=== PATIENT | male | born 1960 | race Caucasian/White ===

== ENCOUNTER 2016-05-17 15:17 | Observation (INO) | payer OTHER ==
[~2016-05-17] VITALS: Ht 182.9 cm; Wt 86.4 kg
[2016-05-17] VITALS (7 sets, daily range): BP systolic 121–148; BP diastolic 69–78; PULSE 61–87; RESP 18; TEMP 97.6–97.8; O2SAT 97–98
[~2016-05-17 15:17] MED LIST: Aspirin Chew PO; LIPI10TA PO; LISI-519 PO; METO25TA3 PO; NITR0.4S SL; PRAS10TA PO; SYMB160A INH
--- NOTE | 2016-05-17 15:36 | PD ---
HPI Chief Complaint: Chest Pain Time Seen by Provider: 15:23 Travel History International Travel<30 days: No Contact w/Intl Traveler<30days: No Traveled to known affect area: No History of Present Illness HPI 56-year-old male with history of CAD, cardiac stent placed on 01/08/16 in his right circumflex artery by Dr. Barajas for NSTEMI, here for evaluation of chest pain. The patient receives care in the [place] [facility]. He has not seen a full roll inspector since his cardiac catheter in December 2015. He states that he was in the [place] clinic a week ago, and his Effient was stopped, and he believes he was started on Plavix, but he is not sure. Chest pain started today about an hour ago while he was pushing a car. He reports the pain is substernal, pressure, mild, nonradiating, no modifying factors. He states it feels similar to his previous DC, but not as bad. No dyspnea. He smokes about a pack of cigarettes daily and states that he has cut down from 3 packs daily. PFSH Past Medical History Asthma: No Depression: Yes Cardiovascular Problems: No COPD: Yes Cerebrovascular Accident: Yes Endocrine: No Genitourinary: No Neurologic: No Reproductive: No Respiratory: Yes (copd) Past Surgical History Surgical History: No Previous Surgery Cardiac Surgery: Yes (stent(01/09/16)) Oral Surgery: Yes (teeth removed) Social History Alcohol Use: Yes (once a week) Tobacco Use: Yes (down to 3 cigs a day(was 3ppd)) Substance Use: Yes (cocaine) Allergies-Medications (Allergen,Severity, Reaction): Uncoded Allergies: NKDA (Allergy, Severe, 11/21/11) Reported Meds & Prescriptions Reported Meds & Active Scripts Active Nitrostat SL (Nitroglycerin) 0.4 Mg Subl 0.4 Mg SL Q5M PRN Metoprolol Tartrate 25 Mg Tab 12.5 Mg PO BID 30 Days Lisinopril 5 Mg Tab 5 Mg PO DAILY 30 Days Symbicort Inh (Budesonide/Formoterol Fumarate) 160-4.5 Mcg/Act Aero 2 Puff INH Q12HR 30 Days Lipitor (Atorvastatin Calcium) 10 Mg Tab 10 Mg PO HS 30 Days Reported Plavix (Clopidogrel Bisulfate) 75 Mg Tab 75 Mg PO DAILY Aspirin Childrens (Aspirin) 81 Mg Chew 81 Mg CHEW HS Review of Systems Except as stated in HPI: all other systems reviewed are Neg Physical Exam Narrative GENERAL: Well-developed, well-nourished, comfortable, no acute distress. SKIN: Warm and dry. HEAD: Atraumatic. Normocephalic. EYES: Pupils equal and round. No scleral icterus. No injection or drainage. ENT: No nasal bleeding or discharge. Mucous membranes pink and moist. Poor dentition. NECK: Trachea midline. No JVD. CARDIOVASCULAR: Regular rate and rhythm. Distal pulses brisk and equal bilaterally. RESPIRATORY: No accessory muscle use. Clear to auscultation. Breath sounds equal bilaterally. GASTROINTESTINAL: Abdomen soft, non-tender, nondistended. MUSCULOSKELETAL: No obvious deformities. No clubbing. No cyanosis. No edema. NEUROLOGICAL: Awake and alert. No obvious cranial nerve deficits. Motor grossly within normal limits. Normal speech. PSYCHIATRIC: Appropriate mood and affect; insight and judgment normal. Data Data Last Documented VS Vital Signs Date Time Temp Pulse Resp B/P Pulse Ox O2 Delivery O2 Flow Rate FiO2 05/17/16 15:33 98 Nasal Cannula 2 05/17/16 15:28 77 18 05/17/16 15:20 97.6 Orders Basic Metabolic Panel (Bmp) (05/17/16 15:31) Ckmb (Isoenzyme) Profile (05/17/16 15:31) Complete Blood Count With Diff (05/17/16 15:31) Magnesium (Mg) (05/17/16 15:31) Prothrombin Time / Inr (Pt) (05/17/16 15:31) Act Partial Throm Time (Ptt) (05/17/16 15:31) Troponin I (05/17/16 15:31) Chest, Single Ap (05/17/16 15:31) Ecg Monitoring (05/17/16 15:31) Iv Access Insert/Monitor (05/17/16 15:31) Oximetry (05/17/16 15:31) Oxygen Administration (05/17/16 15:31) Aspirin Chew (Aspirin Chew) (05/17/16 15:45) Sodium Chloride 0.9% Flush (Ns Flush) (05/17/16 15:45) Nitroglycerin Sl (Nitrostat Sl) (05/17/16 15:45) CKMB (05/17/16 15:50) CKMB% (05/17/16 15:50) Labs Laboratory Tests Test 05/17/16 15:50 White Blood Count 8.4 TH/MM3 Red Blood Count 5.66 MIL/MM3 Hemoglobin 17.4 GM/DL Hematocrit 50.6 % Mean Corpuscular Volume 89.5 FL Mean Corpuscular Hemoglobin 30.8 PG Mean Corpuscular Hemoglobin 34.4 % Concent Red Cell Distribution Width 13.4 % Platelet Count 241 TH/MM3 Mean Platelet Volume 8.6 FL Neutrophils (%) (Auto) 59.8 % Lymphocytes (%) (Auto) 28.4 % Monocytes (%) (Auto) 7.4 % Eosinophils (%) (Auto) 3.4 % Basophils (%) (Auto) 1.0 % Neutrophils # (Auto) 5.0 TH/MM3 Lymphocytes # (Auto) 2.4 TH/MM3 Monocytes # (Auto) 0.6 TH/MM3 Eosinophils # (Auto) 0.3 TH/MM3 Basophils # (Auto) 0.1 TH/MM3 CBC Comment DIFF FINAL Differential Comment Prothrombin Time 10.4 SEC Prothromb Time International 0.9 RATIO Ratio Activated Partial 28.6 SEC Thromboplast Time Sodium Level 137 MEQ/L Potassium Level 4.2 MEQ/L Chloride Level 104 MEQ/L Carbon Dioxide Level 22.2 MEQ/L Anion Gap 11 MEQ/L Blood Urea Nitrogen 19 MG/DL Creatinine 1.11 MG/DL Estimat Glomerular Filtration 68 ML/MIN Rate Random Glucose 87 MG/DL Calcium Level 9.5 MG/DL Magnesium Level 2.2 MG/DL Total Creatine Kinase 140 U/L Troponin I LESS THAN 0.02 NG/ML MDM Medical Decision Making Medical Screen Exam Complete: Yes Emergency Medical Condition: Yes Medical Record Reviewed: Yes Interpretation(s) EKG: Sinus, rate 76, normal axis, RBBB, no acute ischemic abnormality, unchanged from prior. Differential Diagnosis ACS, pneumothorax, pericarditis, PE, pneumonia, GERD, musculoskeletal pain Narrative Course Vital signs show heart rate 77, blood pressure 130/78, pulse ox 98% on room air , oral temp of 97.6F. CBC is remarkable for hemoglobin of 17.4, otherwise unremarkable. BMP is essentially unremarkable. Cardiac enzymes are negative. Chest x-ray: Hyperinflation characteristic of COPD. No superimposed acute infiltrate. Patient was made aware of all findings. He states his chest pain has resolved completely after one sublingual nitroglycerin. Given history of cardiac disease with recent stenting to the circumflex artery in December 2015, the patient will be admitted for overnight observation to the chest pain center. He is amenable to this plan. Diagnosis Primary Impression: Chest pain Qualified Code: R07.9 - Chest pain, unspecified type Admitting Information Admitting Physician Requests: Ron Garrido MD May 17, 2016 15:36
[2016-05-17] MEDS ORDERED: SODIUM CHLORIDE 0.9% FLUSH 5 ML FLUSH IVF PRN ×2 (15:45→17:00)
[2016-05-17] MEDS ORDERED: NITROGLYCERIN 0.4 MG SL 25 TABS/BTL SL ONE (15:45)
[2016-05-17] MEDS ORDERED: ASPIRIN 81 MG CHEW TAB PO ONE (15:45)
--- NOTE | 2016-05-17 15:51 | RADRPT ---
EXAM DATE/TIME: 05/17/2016 15:41 [facility] COMPARISON: CHEST SINGLE AP, January 29, 2016, 13:26. INDICATIONS : Chest pain MEDICAL HISTORY : Chronic obstructive pulmonary disease. SURGICAL HISTORY : Cardic stent ENCOUNTER: Initial ACUITY: 1 day PAIN SCORE: 8/10 LOCATION: chest FINDINGS: A single view of the chest demonstrates hyperinflation characteristic of some degree of COPD. No supe rimposed acute infiltrate or effusion. Heart size is normal. Osseous structures are intact. CONCLUSION: Hyperinflation characteristic of COPD. No superimposed acute infiltrate. Wilmer De Anda MD on May 17, 2016 at 15:48 Board Certified Radiologist. This report was verified electronically.
[2016-05-17 16:11] LABS: BASOPHIL # 0.1 TH/MM3 (0-0.2); EOSINOPHIL # 0.3 TH/MM3 (0-0.4); EOSINOPHIL % 3.4 % (0.0-4.0); HEMATOCRIT 50.6 % (39.0-51.0); HEMO FLAGS DIFF FINAL; LYMPH % 28.4 % (9.0-44.0); LYMPHOCYTE # 2.4 TH/MM3 (1.0-4.8); MEAN CELL VOLUME 89.5 FL (80.0-100.0); MEAN CORPUSCULAR HEMOGLOBIN 30.8 PG (27.0-34.0); MEAN CORPUSCULAR HGB CONC 34.4 % (32.0-36.0); MONO % 7.4 % (0.0-8.0); NEUT % 59.8 % (16.0-70.0); PLATELET COUNT 241 TH/MM3 (150-450); RED BLOOD COUNT 5.66 MIL/MM3 (4.50-5.90); RED CELL DISTRIBUTION WIDTH 13.4 % (11.6-17.2); WHITE BLOOD COUNT 8.4 TH/MM3 (4.0-11.0)
[2016-05-17] MEDS ORDERED: ASPI81CH5 CHEW (16:24)
[2016-05-17] MEDS ORDERED: PLAV75TA29 PO (16:24)
[2016-05-17 16:27] LABS: APTT (PATIENT) 28.6 SEC (24.3-30.1); INTERNATIONAL NORMALIZED RATIO 0.9 RATIO; PROTHROMBIN TIME - PATIENT 10.4 SEC (9.8-11.6)
[2016-05-17 16:28] LABS: ANION GAP 11 MEQ/L (5-15); BICARBONATE 22.2 MEQ/L (21.0-32.0); BLOOD UREA NITROGEN 19 MG/DL (7-18); CHLORIDE 104 MEQ/L (98-107); GLOMERULAR FILTRATION RATE 68 ML/MIN (>89); MAGNESIUM 2.2 MG/DL (1.5-2.5); POTASSIUM 4.2 MEQ/L (3.5-5.1); SODIUM (NA) 137 MEQ/L (136-145)
[2016-05-17 16:31] LABS: CREATINE KINASE 140 U/L (39-308)
[2016-05-17 16:44] LABS: CKMB 1.7 NG/ML (0.5-3.6)
[2016-05-17] MEDS ORDERED: NITROGLYCERIN 0.4 MG SL 25 TABS/BTL SL PRN (17:00)
[2016-05-17] MEDS ORDERED: ONDANSETRON HCL 4 MG/2 ML VIAL IV PRN (17:00)
[2016-05-17] MEDS ORDERED: ACETAMINOPHEN 500 MG CPLT PO PRN (17:00)
--- NOTE | 2016-05-17 18:36 | HHI.HP ---
HPI Primary Care Physician [facility] Chief Complaint Chest pain History of Present Illness 56-year-old male with known CAD with one cardiac stent placed to his left circumflex December 2015. He was a non-STEMI at that time. Onset this afternoon, he is unsure of exact time, when he developed substernal chest pressure as though "someone was sitting on my chest." Severity of chest pressure 5/10 currently 1/10. Radiation to his left anterior chest. Duration has been constant although has improved in intensity. Associated symptoms included diaphoresis and feeling weak and dizzy. No nausea. Precipitating factors he believes pushing a car. 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 Today while at work he had chest pressure through most of the day that became severe after pushing a third car. No known relieving factors. Chronic intermittent neck/upper mid back pain that radiates to his left arm for the past 2 years. Last week he went to the [place] clinic for refills of medications. Endorses he was compliant with medications for 30 days after cardiac stent placement. Due to lack of insurance and waiting for Hi approval of medications, he has been out of medications up until one week ago. Last week all medications refilled with the exception of Effient which was changed to Plavix. Review of Systems General: Fatigue since cardiac stent placement. Intermittent fevers and chills 2 weeks. No change in appetite. HEENT: No KRAMER, no vision changes, no dysphasia. Nasal congestion and drainage 2 weeks, does not feel he has seasonal allergies. CV: As stated above. No palpitations or intermittent leg pain RESP: No SOB or hemoptysis. States "I have a daily smoker's cough." This is not changed and is stable, has COPD. GI: No nausea, vomiting, bowel changes, diarrhea, constipation, pain, distention , melena, blood in the stool. No change in appetite. Last year lost 70 pounds after his divorce, currently weight is unchanged and stable. : No dysuria, urgency, frequency, hematuria EXT: No lower leg edema, no paraesthesias MS: Chronic neck and back discomfort, stable. No change in ROM. NEURO: No change in memory, dizziness, difficulty with balance, LOC, motor/ sensory deficits PSYCH: No anxiety or depression. Situational stress regarding his need to work however due to the physical nature of job is quite stressed. SKIN: No rashes, no concerning lesions Past Family Social History Allergies: Uncoded Allergies: NKDA (Allergy, Severe, 11/21/11) Past Medical History COPD, CADnon-STEMI, one cardiac stent to left circumflex Past Surgical History None Reported Medications Reported Meds & Active Scripts Active Nitrostat SL (Nitroglycerin) 0.4 Mg Subl 0.4 Mg SL Q5M PRN Metoprolol Tartrate 25 Mg Tab 12.5 Mg PO BID 30 Days Lisinopril 5 Mg Tab 5 Mg PO DAILY 30 Days Symbicort Inh (Budesonide/Formoterol Fumarate) 160-4.5 Mcg/Act Aero 2 Puff INH Q12HR 30 Days Lipitor (Atorvastatin Calcium) 10 Mg Tab 10 Mg PO HS 30 Days Plavix (Clopidogrel Bisulfate) 75 Mg Tab 75 Mg PO DAILY Aspirin Childrens (Aspirin) 81 Mg Chew 81 Mg CHEW HS Active Ordered Medications Current Medications Medications (Trade) Dose Ordered Sig/Saturnino Route Start Time Stop Time Status Last Admin (Tylenol) 500 mg Q4H PRN PO 05/17/16 17:00 (Zofran Inj) 4 mg Q6H PRN IV 05/17/16 17:00 (Nitrostat Sl) 0.4 mg Q5M PRN SL 05/17/16 17:00 (Aspirin) 325 mg DAILY PO 05/18/16 09:00 Family History Non-contributory for early onset cardiovascular disease Social History , ex- at bedside. Works at local [employer]. Lifelong smoker. Prior to [place] in December smoked 3 packs/daily. Currently smoking 1 pack daily. Alcohol occasionally states maybe once a week. Has not smoked cocaine in "months." Past cardiac testing 01/08/16left circumflex PTCA with drug-eluting stent. No recent stress testing. Not followed with storage engineer since catheterization due to insurance. Physical Exam Vital Signs Vital Signs Date Time Temp Pulse Resp B/P Pulse Ox O2 Delivery O2 Flow Rate FiO2 05/17/16 15:33 98 Nasal Cannula 2 05/17/16 15:33 98 Nasal Cannula 2 05/17/16 15:28 77 18 98 Room Air 05/17/16 15:20 97.6 75 18 Physical Exam GENERAL: Alert WN, WD, NAD, pleasant, male who appears older than stated age HEAD: NC, AT EYES: Sclera clear, conjunctiva without injection, pupils equal and round ENT: Mucous membranes pink and moist CV: RRR, without murmur, rub, gallop, no JVD, S1-S2 no S3-S4. Left anterior and substernal chest tender upon palpation. RESP: Inspiratory and expiratory wheeze with a prolonged expiratory phase. No crackles or rhonchi. Symmetrical chest rise, nonlabored, able to speak in full sentences ABD: Soft, NT, ND, no masses, positive bowel tones EXT: Pulses +14, no dependent edema MS: Normal tone 4 extremities, nontender, no obvious deformities, full range of motion NEURO: CN II through CN XII grossly intact, motor strength 5/5, gait WNL PSYCH: A+O 3, pleasant affect, appropriate speech, appropriate mood and affect , insight and judgment SKIN: Normal turgor, normal texture, no lesions, no rashes Laboratory Laboratory Tests Test 05/17/16 15:50 White Blood Count 8.4 Red Blood Count 5.66 Hemoglobin 17.4 Hematocrit 50.6 Mean Corpuscular Volume 89.5 Mean Corpuscular Hemoglobin 30.8 Mean Corpuscular Hemoglobin 34.4 Concent Red Cell Distribution Width 13.4 Platelet Count 241 Mean Platelet Volume 8.6 Neutrophils (%) (Auto) 59.8 Lymphocytes (%) (Auto) 28.4 Monocytes (%) (Auto) 7.4 Eosinophils (%) (Auto) 3.4 Basophils (%) (Auto) 1.0 Neutrophils # (Auto) 5.0 Lymphocytes # (Auto) 2.4 Monocytes # (Auto) 0.6 Eosinophils # (Auto) 0.3 Basophils # (Auto) 0.1 CBC Comment DIFF FINAL Differential Comment Prothrombin Time 10.4 Prothromb Time International 0.9 Ratio Activated Partial 28.6 Thromboplast Time Sodium Level 137 Potassium Level 4.2 Chloride Level 104 Carbon Dioxide Level 22.2 Anion Gap 11 Blood Urea Nitrogen 19 Creatinine 1.11 Estimat Glomerular Filtration 68 Rate Random Glucose 87 Calcium Level 9.5 Magnesium Level 2.2 Total Creatine Kinase 140 Creatine Kinase MB 1.7 Troponin I LESS THAN 0.02 Result Diagram: 05/17/16 1550 05/17/16 1550 Imaging Last Impressions Chest X-Ray 05/17/16 1531 Signed Impressions: Service Date/Time: Tuesday, May 17, 2016 15:41 - CONCLUSION: Hyperinflation characteristic of COPD. No superimposed acute infiltrate. Wilmer De Anda MD Course EKG Normal sinus rhythm, right bundle branch block, no ST or T-segment changes Assessment and Plan Assessment and Plan #1 Chest painadmitted to chest pain center. Will be ruled out with 3 sets of EKGs and cardiac enzymes. Monitor overnight. Will be seen and evaluated by Dr. Clemons in the a.m. Discussed this with patient and he is agreeable to plan of care. Further disposition to follow. Cardiac home medications will be reordered. #2 Tobacco usediscussed and counseled patient in length on importance of tobacco sensation. Encouraged patient to quit smoking. #3 COPDreorder Symbicort, encouraged tobacco sensation Cassandra Hernandez May 17, 2016 18:36
[2016-05-17] MEDS ORDERED: PILL SPLITTER OTHER PRN (18:45)
[2016-05-17] MEDS ORDERED: RESP: ALBUTEROL 2.5 MG/3 ML NEB (PRN) NEB (18:45)
[2016-05-17] MEDS ORDERED: ATORVASTATIN 10 MG TAB PO SCH (21:00)
[2016-05-17 21:17] LABS: CREATINE KINASE 108 U/L (39-308)
[2016-05-17 21:29] LABS: CKMB 1.6 NG/ML (0.5-3.6)
[2016-05-17] MEDS: SODIUM CHLORIDE 0.9% FLUSH 5 ML FLUSH IVF SCH (21:46)
[2016-05-17] MEDS: BUDESONIDE-FORMOTEROL 160/4.5 MCG INHALER INH SCH (21:46)
[2016-05-17] MEDS: METOPROLOL TARTRATE 25 MG TAB PO SCH (21:48)
[2016-05-17 22:45] LABS: CREATINE KINASE 107 U/L (39-308)
[2016-05-17 22:58] LABS: CKMB 1.2 NG/ML (0.5-3.6)
[2016-05-18] VITALS (7 sets, daily range): BP systolic 107–112; BP diastolic 63–67; PULSE 58–81; RESP 14–16; TEMP 95.8–98; O2SAT 96–97
[2016-05-18] MEDS: SODIUM CHLORIDE 0.9% FLUSH 5 ML FLUSH IVF SCH (08:02)
[2016-05-18] MEDS ORDERED: CLOPIDOGREL 75 MG TAB PO SCH (09:00)
[2016-05-18] MEDS ORDERED: ASPIRIN 325 MG TAB PO SCH (09:00)
[2016-05-18] MEDS ORDERED: LISINOPRIL 5 MG TAB PO SCH (09:00)
[2016-05-18] MEDS ORDERED: REGADENOSON INJ 0.4 MG/5 ML SYR ONE (10:56)
[2016-05-18] MEDS: BUDESONIDE-FORMOTEROL 160/4.5 MCG INHALER INH SCH (11:54)
[2016-05-18] MEDS: METOPROLOL TARTRATE 25 MG TAB PO SCH (11:56)
--- NOTE | 2016-05-18 12:19 | RADRPT ---
EXAM DATE/TIME: 05/18/2016 10:11 [facility] COMPARISON: No previous studies available for comparison. INDICATIONS : Substernal chest pain for 1 day. Angina. DOSE: 26.3 mCi Tc99m Myoview at stress. 8.6 mCi Tc99m Myoview at rest. 0.4 mg Lexiscan STRESS SYMPTOMS: Shortness of breath. EJECTION FRACTION: 44% MEDICAL HISTORY : Myocardial infarction. Chronic obstructive pulmonary disease. Hypercholesterolemia. Hypertension. Smo ker. Stroke SURGICAL HISTORY : Coronary artery stent. ENCOUNTER: Initial ACUITY: 1 day PAIN SCALE: 5/10 LOCATION: Substernal chest TECHNIQUE: The patient underwent pharmacologic stress with infusion of prescribed dose. Continuous ECG tracing was monitored during stress. Gated SPECT imaging was performed after stress and conventional SPECT i maging was performed at rest. The examination was performed on a SPECT/CT scanner, both attenuation and non-corrected datasets were reviewed. FINDINGS: DISTRIBUTION: The maximum perfused segment at stress is in the lateral wall. There is some increased activity in th e inferior wall on the stress images due to bowel contamination PERFUSION STUDY: The pattern of perfusion at stress shows approximately 20% redistribution in the region of the apex. GATED STUDY: Diffuse hypokinesis with a reduced ejection fraction of 44%. CONCLUSION: 1. Scintigraphic findings concerning for apical ischemia. 2. Diffuse hypokinesis with a reduced ejection fraction of 44%. RISK CATEGORY: Intermediate (1-3% Annual Mortality Rate) Wilmer De Anda MD on May 18, 2016 at 12:11 Board Certified Radiologist. This report was verified electronically.
[2016-05-18] MEDS ORDERED: SODIUM CHLOR 0.9% 1000 ML INJ 1,000 ML IV SCH (13:58)
--- NOTE | 2016-05-18 15:11 | HHI.DCPOC ---
Discharge Care Plan Diagnosis: (1) Chest pain (2) CAD (coronary artery disease) (3) H/O heart artery stent (4) Hypertension (5) Hyperlipidemia (6) Tobacco abuse (7) COPD (chronic obstructive pulmonary disease) Goals to Promote Your Health * To prevent worsening of your condition and complications * To maintain your health at the optimal level Directions to Meet Your Goals Take your medications as prescribed Follow your dietary instruction Follow activity as directed Keep your appointments as scheduled Take your immunizations and boosters as scheduled If your symptoms worsen call your PCP, if no PCP go to Urgent Care Center or Emergency Room Smoking is Dangerous to Your Health. Avoid second hand smoke Call the 24-hour hour crisis hotline for domestic abuse at Mick [place] May 18, 2016 15:11
--- NOTE | 2016-05-18 16:51 | EKG ---
Date Performed: 05/17/2016 Time Performed: 18:38:29 PTAGE: 56 years EKG: SINUS BRADYCARDIA WITH SINUS ARRHYTHMIA RIGHT BUNDLE BRANCH BLOCK ABNORMAL ECG Since PREVIOUS TRACING , no significant change noted PREVIOUS TRACIN05/17/2016 15.25 DOCTOR: Liset Clemons Interpretating Date/Time 05/18/2016 16:51:38
--- NOTE | 2016-05-18 16:51 | EKG ---
Date Performed: 05/17/2016 Time Performed: 15:25:28 PTAGE: 56 years EKG: Sinus rhythm RIGHT BUNDLE BRANCH BLOCK ABNORMAL ECG Since PREVIOUS TRACING , no significant change noted DOCTOR: Liset Clemons Interpretating Date/Time 05/18/2016 16:50:08
--- NOTE | 2016-05-18 16:54 | EKG ---
Date Performed: 05/17/2016 Time Performed: 22:05:09 PTAGE: 56 years EKG: Sinus rhythm RIGHT BUNDLE BRANCH BLOCK ABNORMAL ECG Since PREVIOUS TRACING , no significant change noted PREVIOUS TRACIN05/17/2016 18.38 DOCTOR: Liset Clemons Interpretating Date/Time 05/18/2016 16:52:54
--- NOTE | 2016-05-18 16:55 | TR ---
Date Performed: 05/18/2016 Time Performed: 10:45:51 DOCTOR: Liset Clemons DRUG LIST: CLINICAL HISTORY: REASON FOR TEST: Angina REASON FOR ENDING: OBSERVATION: CONCLUSION: Lexiscan stress test was performed under standard four minute protocol. Radionuclid e was injected one minute prior to ending the test. No electrocardiographic abormalities were present to suggest ischemia. Nuclear imaging and interpretation are pending. COMMENTS:
== END 2016-05-18 17:08 | disposition home or self-care (01) ==
LOC: NEPC 15:17 → NEDA 16:45 → NEPHCDU 20:52
PROVIDERS: ADMIT Internal Medicine Cardiovascular Disease; ATTEND Internal Medicine Cardiovascular Disease
DX: R07.9 Chest pain, unspecified (principal); Z95.5 Presence of coronary angioplasty implant and graft; I25.10 Atherosclerotic heart disease of native coronary artery without angina pectoris; I25.2 Old myocardial infarction; F17.210 Nicotine dependence, cigarettes, uncomplicated; J44.9 Chronic obstructive pulmonary disease, unspecified; Z86.73 Personal history of transient ischemic attack (TIA), and cerebral infarction without residual deficits; Z79.01 Long term (current) use of anticoagulants; R61 Generalized hyperhidrosis; M54.9 Dorsalgia, unspecified; I45.10 Unspecified right bundle-branch block
CPT/HCPCS: 71010; 78452; 80048; 82550; 82552; 83735; 84484; 85025; 85610; 85730; 93005; 93017; 94664; 99285; A9502; G0378; J2785; J7030; J7613

== ENCOUNTER 2016-07-23 08:22 | Observation (INO) | payer OTHER ==
[~2016-07-23] VITALS: Ht 180.3 cm; Wt 91.0 kg
[~2016-07-23 08:22] MED LIST changes: +ASPI81CH5 CHEW; -Aspirin Chew PO; +PLAV75TA29 PO; -PRAS10TA PO
[2016-07-23 08:24] VITALS: BP 135/89; PULSE 76; RESP 24; TEMP 97.5; O2SAT 96
[2016-07-23 08:25] VITALS: O2SAT 93
[2016-07-23] MEDS ORDERED: SODIUM CHLORIDE 0.9% FLUSH 10 ML FLUSH IVF PRN (08:30)
[2016-07-23 08:33] VITALS: BP 142/82; PULSE 78; RESP 15; O2SAT 93
[2016-07-23 08:35] VITALS: BP_SYST 142; BP_SYST 149; BP_DIAS 82; BP_DIAS 90
--- NOTE | 2016-07-23 08:44 | RADRPT ---
EXAM DATE/TIME: 07/23/2016 08:30 [facility] COMPARISON: CHEST SINGLE AP, May 17, 2016, 15:41. INDICATIONS : Chest pain today MEDICAL HISTORY : Myocardial infarction. Chronic obstructive pulmonary disease. SURGICAL HISTORY : None. ENCOUNTER: Initial ACUITY: 1 day PAIN SCORE: 3/10 LOCATION: Bilateral chest FINDINGS: A single view of the chest demonstrates the lungs to be symmetrically aerated without evidence of mas s, infiltrate or effusion. The cardiomediastinal contours are unremarkable. Osseous structures are intact. CONCLUSION: No acute disease. Axel Villalobos MD on July 23, 2016 at 8:41 Board Certified Radiologist. This report was verified electronically.
--- NOTE | 2016-07-23 08:48 | PD ---
HPI Chief Complaint: Chest Pain Time Seen by Provider: 08:27 Travel History International Travel<30 days: No Contact w/Intl Traveler<30days: No Traveled to known affect area: No History of Present Illness HPI This is a 56-year-old gentleman with history of coronary artery disease, COPD, presents today with complaints of chest pain that woke from sleep this morning. Patient reports it as left sided radiating from the top of his chest at the bottom of his chest. He reports it as a 5 out of 10 on the pain scale. He has chronic shortness of breath but denies any worsening shortness of breath. He denies any nausea or diaphoresis. The patient reports she's not been on his medications for several weeks because he has been working nonstop as a fuel truck driver. There are no other complaints time of my examination. PFSH Past Medical History Asthma: No Depression: Yes Heart Rhythm Problems: No Cardiac Catheterization: Yes Cardiovascular Problems: Yes High Cholesterol: Yes Congestive Heart Failure: No COPD: Yes Cerebrovascular Accident: Yes Diabetes: No Endocrine: No Genitourinary: No Neurologic: No Reproductive: No Respiratory: Yes (copd) Past Surgical History Cardiac Surgery: Yes (stent(01/09/16)) Coronary Artery Bypass Graft: No Oral Surgery: Yes (teeth removed) Social History Alcohol Use: Yes (once a week) Tobacco Use: Yes (down to 3 cigs a day(was 3ppd)) Substance Use: Yes (cocaine) Allergies-Medications (Allergen,Severity, Reaction): Coded Allergies: No Known Allergies (Unverified , 07/23/16) Reported Meds & Prescriptions Reported Meds & Active Scripts Active Nitrostat SL (Nitroglycerin) 0.4 Mg Subl 0.4 Mg SL Q5M PRN Metoprolol Tartrate 25 Mg Tab 12.5 Mg PO BID 30 Days Lisinopril 5 Mg Tab 5 Mg PO DAILY 30 Days Symbicort Inh (Budesonide/Formoterol Fumarate) 160-4.5 Mcg/Act Aero 2 Puff INH Q12HR 30 Days Lipitor (Atorvastatin Calcium) 10 Mg Tab 10 Mg PO HS 30 Days Reported Plavix (Clopidogrel Bisulfate) 75 Mg Tab 75 Mg PO DAILY Aspirin Childrens (Aspirin) 81 Mg Chew 81 Mg CHEW HS Review of Systems Except as stated in HPI: all other systems reviewed are Neg General / Constitutional: No: Fever, Chills HENT: No: Headaches, Lightheadedness Cardiovascular: Positive: Chest Pain or Discomfort, No: Palpitations, Irregular Rhythm Respiratory: Positive: Shortness of Breath (chronic secondary to COPD), No: Cough, Pleuritic Pain Gastrointestinal: Positive: Nausea, Vomiting, Abdominal Pain Musculoskeletal: No: Weakness, Pain Neurologic: No: Weakness, Dizziness, Headache Psychiatric: No: Anxiety, Depression Physical Exam Narrative GENERAL: Well-developed well-nourished male in no acute distress. The patient has a strong tobacco odor. SKIN: Focused skin assessment warm/dry. HEAD: Atraumatic. Normocephalic. EYES:No scleral icterus. No injection or drainage. ENT: No nasal bleeding or discharge. Mucous membranes pink and moist. NECK: Trachea midline. No JVD. Supple. CARDIOVASCULAR: Regular rate and rhythm. No murmur appreciated. RESPIRATORY: No accessory muscle use. Clear to auscultation. Breath sounds equal bilaterally. No wheezes. GASTROINTESTINAL: Abdomen soft, non-tender, nondistended. Hepatic and splenic margins not palpable. MUSCULOSKELETAL: No obvious deformities. No clubbing. No cyanosis. No edema. NEUROLOGICAL: Awake and alert. No obvious cranial nerve deficits. Motor grossly within normal limits. Normal speech. PSYCHIATRIC: Appropriate mood and affect; insight and judgment normal. Data Data Last Documented VS Vital Signs Date Time Temp Pulse Resp B/P Pulse Ox O2 Delivery O2 Flow Rate FiO2 07/23/16 08:52 78 15 142/82 97 07/23/16 08:35 Room Air 07/23/16 08:25 2.0 07/23/16 08:24 97.5 Orders Electrocardiogram (07/23/16 ) Electrocardiogram (07/23/16 08:27) Basic Metabolic Panel (Bmp) (07/23/16 08:27) Ckmb (Isoenzyme) Profile (07/23/16 08:27) Complete Blood Count With Diff (07/23/16 08:27) Magnesium (Mg) (07/23/16 08:27) Prothrombin Time / Inr (Pt) (07/23/16 08:27) Act Partial Throm Time (Ptt) (07/23/16 08:27) Troponin I (07/23/16 08:27) Chest, Single Ap (07/23/16 08:27) Ecg Monitoring (07/23/16 08:27) Bilateral Bp Monitoring (07/23/16 08:27) Iv Access Insert/Monitor (07/23/16 08:27) Oximetry (07/23/16 08:27) Oxygen Administration (07/23/16 08:27) Sodium Chloride 0.9% Flush (Ns Flush) (07/23/16 08:30) CKMB (07/23/16 08:30) CKMB% (07/23/16 08:30) Admit Order (Ed Use Only) (07/23/16 09:35) Labs Laboratory Tests Test 07/23/16 08:30 White Blood Count 8.0 TH/MM3 Red Blood Count 5.34 MIL/MM3 Hemoglobin 16.6 GM/DL Hematocrit 47.1 % Mean Corpuscular Volume 88.2 FL Mean Corpuscular Hemoglobin 31.1 PG Mean Corpuscular Hemoglobin 35.3 % Concent Red Cell Distribution Width 13.5 % Platelet Count 236 TH/MM3 Mean Platelet Volume 8.1 FL Neutrophils (%) (Auto) 63.3 % Lymphocytes (%) (Auto) 25.1 % Monocytes (%) (Auto) 7.9 % Eosinophils (%) (Auto) 2.8 % Basophils (%) (Auto) 0.9 % Neutrophils # (Auto) 5.0 TH/MM3 Lymphocytes # (Auto) 2.0 TH/MM3 Monocytes # (Auto) 0.6 TH/MM3 Eosinophils # (Auto) 0.2 TH/MM3 Basophils # (Auto) 0.1 TH/MM3 CBC Comment DIFF FINAL Differential Comment Prothrombin Time 10.9 SEC Prothromb Time International 1.0 RATIO Ratio Activated Partial 29.2 SEC Thromboplast Time Sodium Level 137 MEQ/L Potassium Level 3.7 MEQ/L Chloride Level 101 MEQ/L Carbon Dioxide Level 28.8 MEQ/L Anion Gap 7 MEQ/L Blood Urea Nitrogen 14 MG/DL Creatinine 1.06 MG/DL Estimat Glomerular Filtration 72 ML/MIN Rate Random Glucose 92 MG/DL Calcium Level 9.0 MG/DL Magnesium Level 2.4 MG/DL Total Creatine Kinase 196 U/L Troponin I LESS THAN 0.02 NG/ML MDM Medical Decision Making Medical Screen Exam Complete: Yes Emergency Medical Condition: Yes Differential Diagnosis ACS versus musculoskeletal pain versus COPD exacerbation versus pneumonia Narrative Course 56-year-old male who presents today with complaints of left sided chest pain. The patient had a stent placed in December. He's been off his medications for 3 weeks. One of the medications was Plavix. He's been given one aspirin. Cardiac enzymes are normal. Given his chest pain and medication noncompliance, I feel he would be best suited in the chest pain center for rule out protocol. I discussed this with the patient and he is amenable. Diagnosis Primary Impression: Chest pain Additional Impressions: Noncompliance with medication treatment due to underuse of medication Tobacco abuse Hypertension CAD (coronary artery disease) Camron Ronquillo MD July 23, 2016 08:48
[2016-07-23 08:52] VITALS: BP 142/82; PULSE 78; RESP 15; O2SAT 97
[2016-07-23 08:59] LABS: BASOPHIL # 0.1 TH/MM3 (0-0.2); BASOPHIL % 0.9 % (0.0-2.0); EOSINOPHIL # 0.2 TH/MM3 (0-0.4); EOSINOPHIL % 2.8 % (0.0-4.0); HEMATOCRIT 47.1 % (39.0-51.0); HEMO FLAGS DIFF FINAL; LYMPH % 25.1 % (9.0-44.0); MEAN CELL VOLUME 88.2 FL (80.0-100.0); MEAN CORPUSCULAR HEMOGLOBIN 31.1 PG (27.0-34.0); MEAN CORPUSCULAR HGB CONC 35.3 % (32.0-36.0); MONO % 7.9 % (0.0-8.0); NEUT % 63.3 % (16.0-70.0); PLATELET COUNT 236 TH/MM3 (150-450); RED BLOOD COUNT 5.34 MIL/MM3 (4.50-5.90); RED CELL DISTRIBUTION WIDTH 13.5 % (11.6-17.2)
[2016-07-23 09:14] LABS: APTT (PATIENT) 29.2 SEC (24.3-30.1); PROTHROMBIN TIME - PATIENT 10.9 SEC (9.8-11.6)
[2016-07-23 09:28] LABS: ANION GAP 7 MEQ/L (5-15); BICARBONATE 28.8 MEQ/L (21.0-32.0); BLOOD UREA NITROGEN 14 MG/DL (7-18); CHLORIDE 101 MEQ/L (98-107); GLOMERULAR FILTRATION RATE 72 ML/MIN (>89); MAGNESIUM 2.4 MG/DL (1.5-2.5); POTASSIUM 3.7 MEQ/L (3.5-5.1); SODIUM (NA) 137 MEQ/L (136-145)
[2016-07-23 09:33] LABS: CREATINE KINASE 196 U/L (39-308)
[2016-07-23 09:45] LABS: CKMB 1.9 NG/ML (0.5-3.6)
[2016-07-23] MEDS ORDERED: ACETAMINOPHEN 500 MG CPLT PO PRN (10:15)
[2016-07-23] MEDS ORDERED: NITROGLYCERIN 0.4 MG SL 25 TABS/BTL SL PRN (10:15)
[2016-07-23] MEDS ORDERED: ONDANSETRON HCL 4 MG/2 ML VIAL IV PRN (10:15)
--- NOTE | 2016-07-23 11:00 | HHI.HP ---
HPI Primary Care Physician [facility] Chief Complaint Chest pain History of Present Illness 56-year-old male significant history of coronary artery disease including x1 stent and current 3 pack daily smoker presents to emergency room for further evaluation of chest pain. Onset this a.m. upon awakening. Location left anterior chest radiating to left inframammary and axillary area Pain has been constant since this a.m. Initially pain rated 7/10, currently pain 2/10. Described as a dull ache. States it "feels like a pulled a muscle." No associated symptoms of nausea, vomiting, or diaphoresis. Hurts to take a deep breath and when moving left arm in certain positions makes pain worse. No recent injury to affected area. No known precipitating or relieving factors. Endorses he has not taken his cardiac or any of his medications 3 weeks as he has been "too busy working." Review of Systems General: No fatigue,weakness, fever, chills, recent illness, or recent travel. His been in his general state of health. Endorses he has been working long hours and therefore has not taken any of his medications including his cardiac medication 3 weeks. HEENT: No KRAMER, no vision changes CV: Continues to have chest pain as stated above. No intermittent leg pain or dizziness. RESP: History of COPD. Reports chronic shortness of breath, unchanged from his normal shortness of breath. Chronic "smoker cough" productive at times. No recent URI or wheeze. Continues to smoke 3 packs cigarettes daily. GI: No nausea, vomiting, bowel changes, diarrhea, constipation, pain, or blood in the stool. No change in appetite, no unintentional weight gain or weight loss. : No dysuria, urgency, frequency EXT: No lower leg edema, chronic bilateral lower leg tingling MS: No discomfort or change in ROM NEURO: No change in memory, dizziness, difficulty with balance, LOC, motor/ sensory deficits PSYCH: No anxiety, depression, or situational stress SKIN: No rashes, no concerning lesions Past Family Social History Allergies: Coded Allergies: No Known Allergies (Unverified , 07/23/16) Past Medical History COPD, CAD, NSTEMI, one cardiac stent to left circumflex Past Surgical History None Reported Medications Active Nitrostat SL (Nitroglycerin) 0.4 Mg Subl 0.4 Mg SL Q5M PRN Metoprolol Tartrate 25 Mg Tab 12.5 Mg PO BID 30 Days Lisinopril 5 Mg Tab 5 Mg PO DAILY 30 Days Symbicort Inh (Budesonide/Formoterol Fumarate) 160-4.5 Mcg/Act Aero 2 Puff INH Q12HR 30 Days Lipitor (Atorvastatin Calcium) 10 Mg Tab 10 Mg PO HS 30 Days Plavix (Clopidogrel Bisulfate) 75 Mg Tab 75 Mg PO DAILY Aspirin Childrens (Aspirin) 81 Mg Chew 81 Mg CHEW HS Active Ordered Medications Current Medications Medications (Trade) Dose Ordered Sig/Saturn[place] Route Start Time Stop Time Status Last Admin (Tylenol) 500 mg Q4H PRN PO 07/23/16 10:15 (Zofran Inj) 4 mg Q6H PRN IV 07/23/16 10:15 (Nitrostat Sl) 0.4 mg Q5M PRN SL 07/23/16 10:15 (Aspirin) 325 mg DAILY PO 07/24/16 09:00 Family History Non-contributory for early onset cardiovascular disease. Social History Known coronary artery disease, hypertension, and hyperlipidemia. No known diabetes. Life long smoker. Currently smoking 3 packs daily. Occasional alcohol use. Denies any illegal drug use. Works at a [employer] 18 hours daily, 6 days a week. Past cardiac testing 05/18/16-Erika scan1. Scintigraphic findings concerning apical ischemia.2. Diffuse hypokinesis, EF 44%. 01/08/16 cardiac catheterization (Dr. Barajas)- Conclusions 1. Non-STEMI. Culprit vessel to left circumflex artery. 2. Successful PCI with drug-eluting stent to left circumflex artery. 3 diastolic dysfunction. Since last visit he has established with the [facility] and has an appointment Tuesday07/27/16 with a [place] wheelchair driver in [place]. Physical Exam Vital Signs Vital Signs Date Time Temp Pulse Resp B/P Pulse Ox O2 Delivery O2 Flow Rate FiO2 07/23/16 08:52 78 15 142/82 97 07/23/16 08:35 142/82 149/90 07/23/16 08:35 93 Room Air 07/23/16 08:33 78 15 142/82 93 Room Air 07/23/16 08:25 93 Room Air 07/23/16 08:25 Nasal Cannula 2.0 07/23/16 08:24 97.5 76 24 135/89 96 Room Air Physical Exam GENERAL: Alert WN, WD, NAD, pleasant, male who appears older than stated age. HEAD: NC, AT NECK: Supple, trachea midline CV: RRR, without murmur, rub, gallop, no JVD, S1-S2 no S3-S4. No carotid bruits. RESP: Diminished lungs throughout bilaterally. No crackles, wheeze, rhonchi, symmetrical chest rise, nonlabored, able to speak in full sentences ABD: Soft, NT, ND, no masses, positive bowel tones BACK: No CVAT, no scoliosis EXT: Pulses +14, no dependent edema MS: Left anterior chest wall pain reproduced with palpation. Normal tone 4 extremities, nontender, no obvious deformities, full range of motion NEURO: CN II through CN XII grossly intact, motor strength 5/5, gait WNL PSYCH: A+O 3, flat affect, appropriate speech, appropriate mood and affect, insight and judgment SKIN: Normal turgor, normal texture, sluggish capillary refill, Laboratory Laboratory Tests Test 07/23/16 08:30 White Blood Count 8.0 Red Blood Count 5.34 Hemoglobin 16.6 Hematocrit 47.1 Mean Corpuscular Volume 88.2 Mean Corpuscular Hemoglobin 31.1 Mean Corpuscular Hemoglobin 35.3 Concent Red Cell Distribution Width 13.5 Platelet Count 236 Mean Platelet Volume 8.1 Neutrophils (%) (Auto) 63.3 Lymphocytes (%) (Auto) 25.1 Monocytes (%) (Auto) 7.9 Eosinophils (%) (Auto) 2.8 Basophils (%) (Auto) 0.9 Neutrophils # (Auto) 5.0 Lymphocytes # (Auto) 2.0 Monocytes # (Auto) 0.6 Eosinophils # (Auto) 0.2 Basophils # (Auto) 0.1 CBC Comment DIFF FINAL Differential Comment Prothrombin Time 10.9 Prothromb Time International 1.0 Ratio Activated Partial 29.2 Thromboplast Time Sodium Level 137 Potassium Level 3.7 Chloride Level 101 Carbon Dioxide Level 28.8 Anion Gap 7 Blood Urea Nitrogen 14 Creatinine 1.06 Estimat Glomerular Filtration 72 Rate Random Glucose 92 Calcium Level 9.0 Magnesium Level 2.4 Total Creatine Kinase 196 Creatine Kinase MB 1.9 Troponin I LESS THAN 0.02 Result Diagram: 07/23/1630 07/23/16 0830 Imaging Last Impressions Chest X-Ray 07/23/16 0825 Signed Impressions: Service Date/Time: Saturday, July 23, 2016 08:30 - CONCLUSION: No acute disease. Axel Villalobos MD Course EKGs 2 EKGs normal sinus rhythm with RBBB Assessment and Plan Assessment and Plan #1 Chest pain-admitted to chest pain center. Ruled out with 2 sets of EKGs and cardiac enzymes. Seen and evaluated by Dr. Mike Duff. No further cardiac testing at this time. Chest discomfort clearly musculoskeletal in nature. Will discharge later this afternoon. Discussed and counseled patient in length on importance of medication compliance and smoking sensation. Keep follow-up appointment with the [place] wheelchair driver on Tuesday. #2 Tobacco usestrongly encouraged patient to quit smoking. #3 History of coronary artery diseasecontinue Plavix, aspirin, metoprolol, and Lipitor. Discussed importance of anticoagulation in regards to his cardiac stent placed December 2015. Education provided regarding his current cardiac medications and reasons for use. Informed patient noncompliance with current cardiac medication regimen increases his risk of further cardiovascular damage and risk of myocardial infarction. #4 COPDcontinue Symbicort, encouraged him to quit smoking. #5 Musculoskeletal painToradol 30 mg IV 1 dose. Upon discharge patient encouraged use [id number] Motrin or Aleve when necessary, may use heat to affected area. Instructed if he decides to take Motrin or Aleve take medications with food, follow-up with PCP if pain persists. Cassandra Hernandez July 23, 2016 11:00
[2016-07-23 11:27] VITALS: BP 145/82; PULSE 65; RESP 18; O2SAT 96
[2016-07-23] MEDS ORDERED: KETOROLAC TROMETHAMINE 30 MG/ML (IVP) VIAL IV PUSH ONE (12:15)
[2016-07-23 12:34] LABS: CREATINE KINASE 157 U/L (39-308)
[2016-07-23] MEDS ORDERED: LISINOPRIL 5 MG TAB PO SCH (12:45)
[2016-07-23] MEDS ORDERED: CLOPIDOGREL 75 MG TAB PO SCH (12:45)
[2016-07-23] MEDS ORDERED: PILL SPLITTER OTHER PRN (12:45)
[2016-07-23] MEDS ORDERED: METOPROLOL TARTRATE 25 MG TAB PO SCH (12:45)
[2016-07-23 12:47] LABS: CKMB 1.7 NG/ML (0.5-3.6)
--- NOTE | 2016-07-23 13:35 | HHI.DCPOC ---
Discharge Care Plan Diagnosis: (1) Musculoskeletal chest pain (2) Tobacco abuse (3) CAD (coronary artery disease) (4) Noncompliance with medication treatment due to underuse of medication (5) H/O heart artery stent Goals to Promote Your Health * To prevent worsening of your condition and complications * To maintain your health at the optimal level Directions to Meet Your Goals Take your medications as prescribed Follow your dietary instruction Follow activity as directed Keep your appointments as scheduled Take your immunizations and boosters as scheduled If your symptoms worsen call your PCP, if no PCP go to Urgent Care Center or Emergency Room Smoking is Dangerous to Your Health. Avoid second hand smoke Call the 24-hour hour crisis hotline for domestic abuse at Cassandra Hernandez July 23, 2016 13:35
[2016-07-23] MEDS ORDERED: SODIUM CHLORIDE 0.9% FLUSH 10 ML FLUSH IV FLUSH SCH (21:00)
[2016-07-23] MEDS ORDERED: ATORVASTATIN 10 MG TAB PO SCH (21:00)
[2016-07-24] MEDS ORDERED: ASPIRIN 325 MG TAB PO SCH (09:00)
--- NOTE | 2016-07-24 16:51 | EKG ---
Date Performed: 07/23/2016 Time Performed: 11:59:10 PTAGE: 56 years EKG: Sinus rhythm RIGHT BUNDLE BRANCH BLOCK ABNORMAL ECG Since PREVIOUS TRACING 07/23/2016, no significant change. PREVIOUS TRACIN07/23/2016 08.29 DOCTOR: Cedric Yang Interpretating Date/Time 07/24/2016 16:49:53
--- NOTE | 2016-07-24 16:51 | EKG ---
Date Performed: 07/23/2016 Time Performed: 08:29:37 PTAGE: 56 years EKG: Sinus rhythm WITH SINUS ARRHYTHMIA RIGHT BUNDLE BRANCH BLOCK ABNORMAL ECG Since PREVIOUS TRACING 05/17/2016, no significant change. PREVIOUS TRACIN05/17/2016 22.05 DOCTOR: Cedric Yang Interpretating Date/Time 07/24/2016 16:49:23
== END 2016-07-23 15:22 | disposition home health service (06) ==
LOC: NEPC 08:22 → NEDA 09:38 → NEPFCDU 11:10
PROVIDERS: ADMIT Internal Medicine Cardiovascular Disease; ATTEND Internal Medicine Cardiovascular Disease
DX: R07.89 Other chest pain (principal); I25.10 Atherosclerotic heart disease of native coronary artery without angina pectoris; I25.2 Old myocardial infarction; I10 Essential (primary) hypertension; J44.9 Chronic obstructive pulmonary disease, unspecified; E78.00 Pure hypercholesterolemia, unspecified; F17.210 Nicotine dependence, cigarettes, uncomplicated; Z95.5 Presence of coronary angioplasty implant and graft; Z91.14 Patient's other noncompliance with medication regimen; Z86.73 Personal history of transient ischemic attack (TIA), and cerebral infarction without residual deficits
CPT/HCPCS: 71010; 80048; 82550; 82552; 83735; 84484; 85025; 85610; 85730; 93005; 96374; 99285; G0378; J1885

== ENCOUNTER 2016-09-13 08:52 | Observation (INO) | payer OTHER ==
[2016-09-13] VITALS (11 sets, daily range): BP systolic 116–146; BP diastolic 72–88; PULSE 58–74; RESP 15–22; TEMP 97.6–98.2; O2SAT 95–99
[~2016-09-13] VITALS: Ht 180.3 cm; Wt 92.5 kg
--- NOTE | 2016-09-13 09:49 | PD ---
HPI Chief Complaint: Chest Pain Time Seen by Provider: 09:25 Travel History International Travel<30 days: No Contact w/Intl Traveler<30days: No Traveled to known affect area: No History of Present Illness HPI 56-year-old male complains of chest pain. Patient states that the chest pain started around 1 AM. Patient states that the chest pain substernal severe pressure pain with radiation to the back, neck and left arm. Patient states that he has diaphoresis with the chest pain. Patient denies any coughing congestion fever chills. Patient states that he was seen in emergency room in June 2016 and was admitted for the same chest pain. Serial EKG and cardiac enzyme at that time were normal. Patient was discharged home. Patient has history hypertension, hyperlipidemia, CAD status post stent placement. Patient on aspirin and Plavix daily. Patient has not taken his aspirin and Plavix today. Patient is a smoker. On a scale of 1-10 the pain is a 5. PFSH Past Medical History Hx Anticoagulant Therapy: Yes (PLAVIX) Asthma: No Autoimmune Disease: Yes (Hep C ) Depression: Yes Heart Rhythm Problems: No Cardiac Catheterization: Yes (ONE STENT) Cardiovascular Problems: Yes (MT) High Cholesterol: Yes Congestive Heart Failure: No COPD: Yes Cerebrovascular Accident: Yes Coronary Artery Disease: Yes Diabetes: No Diminished Hearing: No Endocrine: No GERD: Yes Genitourinary: No Neurologic: No Reproductive: No Respiratory: Yes (COPD) Pneumonia: Yes Past Surgical History Cardiac Surgery: Yes (stent(01/09/16)) Coronary Artery Bypass Graft: No Coronary Stent: Yes (heart atack january 10, 2016) Oral Surgery: Yes (teeth removed) Social History Alcohol Use: Yes (moderate occassionally ) Tobacco Use: Yes (3 packs a day x 40 years ) Substance Use: Yes (marijuanna ) Allergies-Medications (Allergen,Severity, Reaction): Coded Allergies: No Known Allergies (Unverified , 09/13/16) Reported Meds & Prescriptions Reported Meds & Active Scripts Active Lisinopril 5 Mg Tab 5 Mg PO DAILY 30 Days Symbicort Inh (Budesonide/Formoterol Fumarate) 160-4.5 Mcg/Act Aero 2 Puff INH Q12HR 30 Days Lipitor (Atorvastatin Calcium) 10 Mg Tab 10 Mg PO HS 30 Days Reported Plavix (Clopidogrel Bisulfate) 75 Mg Tab 75 Mg PO DAILY Aspirin Childrens (Aspirin) 81 Mg Chew 81 Mg CHEW HS Review of Systems General / Constitutional: No: Fever Eyes: No: Visual changes HENT: No: Headaches Cardiovascular: Positive: Chest Pain or Discomfort Respiratory: No: Shortness of Breath Gastrointestinal: No: Abdominal Pain Genitourinary: No: Dysuria Musculoskeletal: No: Pain Skin: No Rash Neurologic: No: Weakness Psychiatric: No: Depression Endocrine: No: Polydipsia Hematologic/Lymphatic: No: Easy Bruising Physical Exam Narrative GENERAL: Well-nourished, well-developed patient. SKIN: Focused skin assessment warm/dry. HEAD: Normocephalic. EYES: No scleral icterus. No injection or drainage. NECK: Supple, trachea midline. No JVD or lymphadenopathy. CARDIOVASCULAR: Regular rate and rhythm without murmurs, gallops, or rubs. RESPIRATORY: Breath sounds equal bilaterally. No accessory muscle use. GASTROINTESTINAL: Abdomen soft, non-tender, nondistended. MUSCULOSKELETAL: No cyanosis, or edema. BACK: Nontender without obvious deformity. No CVA tenderness. Neurologic exam normal. Data Data Last Documented VS Vital Signs Date Time Temp Pulse Resp B/P Pulse Ox O2 Delivery O2 Flow Rate FiO2 09/13/16 11:13 58 16 116/75 95 Room Air 09/13/16 08:53 98.2 Orders Electrocardiogram (09/13/16 ) Complete Blood Count With Diff (09/13/16 09:41) Comprehensive Metabolic Panel (09/13/16 09:41) Creatine Kinase (Cpk) (09/13/16 09:41) Troponin I (09/13/16 09:41) Prothrombin Time / Inr (Pt) (09/13/16 09:41) Act Partial Throm Time (Ptt) (09/13/16 09:41) Lipase (09/13/16 09:41) Chest, Single Ap (09/13/16 09:41) Iv Access Insert/Monitor (09/13/16 09:41) Ecg Monitoring (09/13/16 09:41) Oximetry (09/13/16 09:41) Aspirin (Aspirin) (09/13/16 10:00) Nitroglycerin Sl (Nitrostat Sl) (09/13/16 10:00) Labs Laboratory Tests Test 09/13/16 09:45 White Blood Count 5.9 TH/MM3 Red Blood Count 5.09 MIL/MM3 Hemoglobin 15.7 GM/DL Hematocrit 46.9 % Mean Corpuscular Volume 92.2 FL Mean Corpuscular Hemoglobin 30.9 PG Mean Corpuscular Hemoglobin 33.6 % Concent Red Cell Distribution Width 13.7 % Platelet Count 191 TH/MM3 Mean Platelet Volume 7.7 FL Neutrophils (%) (Auto) 62.9 % Lymphocytes (%) (Auto) 24.4 % Monocytes (%) (Auto) 8.0 % Eosinophils (%) (Auto) 3.7 % Basophils (%) (Auto) 1.0 % Neutrophils # (Auto) 3.7 TH/MM3 Lymphocytes # (Auto) 1.4 TH/MM3 Monocytes # (Auto) 0.5 TH/MM3 Eosinophils # (Auto) 0.2 TH/MM3 Basophils # (Auto) 0.1 TH/MM3 CBC Comment DIFF FINAL Differential Comment Prothrombin Time 10.3 SEC Prothromb Time International 0.9 RATIO Ratio Activated Partial 29.5 SEC Thromboplast Time Sodium Level 137 MEQ/L Potassium Level 4.0 MEQ/L Chloride Level 106 MEQ/L Carbon Dioxide Level 22.4 MEQ/L Anion Gap 9 MEQ/L Blood Urea Nitrogen 17 MG/DL Creatinine 1.12 MG/DL Estimat Glomerular Filtration 68 ML/MIN Rate Random Glucose 115 MG/DL Calcium Level 8.8 MG/DL Total Bilirubin 0.3 MG/DL Aspartate Amino Transf 19 U/L (AST/SGOT) Alanine Aminotransferase 28 U/L (ALT/SGPT) Alkaline Phosphatase 104 U/L Total Creatine Kinase 166 U/L Troponin I LESS THAN 0.02 NG/ML Total Protein 7.0 GM/DL Albumin 3.4 GM/DL Lipase 134 U/L [facility] Medical Decision Making Medical Screen Exam Complete: Yes Emergency Medical Condition: Yes Interpretation(s) 9:48 AM. EKG shows sinus rhythm with right right bundle-branch block. Nonspecific ST-T wave change. Unchanged from previous EKG. 11:18 AM. Last Impressions Chest X-Ray 09/13/16 0956 Signed Impressions: Service Date/Time: Tuesday, September 13, 2016 09:42 - CONCLUSION: Normal examination. Sherman Kapoor MD 11:18 AM. CBC within normal limit. CMP within normal limit. Cardiac enzymes are normal. Differential Diagnosis Differential diagnosis including musculoskeletal, angina, MT, PE, pneumothorax. Narrative Course 56-year-old male with chest pain. History of CAD status post stent placement. Aspirin 25 minute gram by mouth given. Nitroglycerin sublingual given. Diagnosis Primary Impression: Chest pain Qualified Code: R07.9 - Chest pain, unspecified type Jerry Jean Baptiste MD Sep 13, 2016 09:48
[2016-09-13 10:00] LABS: AUTOMATED NEUTROPHIL # 3.7 TH/MM3 (1.8-7.7); BASOPHIL # 0.1 TH/MM3 (0-0.2); EOSINOPHIL # 0.2 TH/MM3 (0-0.4); EOSINOPHIL % 3.7 % (0.0-4.0); HEMATOCRIT 46.9 % (39.0-51.0); HEMO FLAGS DIFF FINAL; LYMPH % 24.4 % (9.0-44.0); LYMPHOCYTE # 1.4 TH/MM3 (1.0-4.8); MEAN CELL VOLUME 92.2 FL (80.0-100.0); MEAN CORPUSCULAR HEMOGLOBIN 30.9 PG (27.0-34.0); MEAN CORPUSCULAR HGB CONC 33.6 % (32.0-36.0); NEUT % 62.9 % (16.0-70.0); PLATELET COUNT 191 TH/MM3 (150-450); RED BLOOD COUNT 5.09 MIL/MM3 (4.50-5.90); RED CELL DISTRIBUTION WIDTH 13.7 % (11.6-17.2); WHITE BLOOD COUNT 5.9 TH/MM3 (4.0-11.0)
[2016-09-13] MEDS ORDERED: NITROGLYCERIN 0.4 MG SL 25 TABS/BTL SL ONE (10:00)
[2016-09-13] MEDS ORDERED: ASPIRIN 325 MG TAB PO ONE (10:00)
--- NOTE | 2016-09-13 10:03 | RADRPT ---
EXAM DATE/TIME: 09/13/2016 09:42 [facility] COMPARISON: CHEST SINGLE AP, July 23, 2016, 8:30. INDICATIONS : Short of breath with chest pains. MEDICAL HISTORY : Chronic obstructive pulmonary disease. Myocardial infarction. SURGICAL HISTORY : Coronary artery stent. ENCOUNTER: Initial ACUITY: 1 day PAIN SCORE: 4/10 LOCATION: Left chest FINDINGS: A single view of the chest demonstrates the lungs to be symmetrically aerated without evidence of mas s, infiltrate or effusion. The cardiomediastinal contours are unremarkable. Osseous structures are intact. CONCLUSION: Normal examination. Sherman Kapoor MD on September 13, 2016 at 10:01 Board Certified Radiologist. This report was verified electronically.
[2016-09-13 10:07] LABS: APTT (PATIENT) 29.5 SEC (24.3-30.1); INTERNATIONAL NORMALIZED RATIO 0.9 RATIO; PROTHROMBIN TIME - PATIENT 10.3 SEC (9.8-11.6)
[2016-09-13 10:19] LABS: ALT (GPT) 28 U/L (12-78); ANION GAP 9 MEQ/L (5-15); AST (GOT) 19 U/L (15-37); BICARBONATE 22.4 MEQ/L (21.0-32.0); BLOOD UREA NITROGEN 17 MG/DL (7-18); CHLORIDE 106 MEQ/L (98-107); GLOMERULAR FILTRATION RATE 68 ML/MIN (>89); SODIUM (NA) 137 MEQ/L (136-145)
[2016-09-13 10:23] LABS: ALKALINE PHOSPHATASE 104 U/L (45-117); CREATINE KINASE 166 U/L (39-308); TOTAL BILIRUBIN ADULT 0.3 MG/DL (0.2-1.0)
[2016-09-13] MEDS ORDERED: ONDANSETRON HCL 4 MG/2 ML VIAL IV PRN ×2 (11:30→13:15)
[2016-09-13] MEDS ORDERED: SODIUM CHLORIDE 0.9% FLUSH 10 ML FLUSH IV FLUSH PRN ×2 (11:30→13:15)
[2016-09-13] MEDS ORDERED: ACETAMINOPHEN 500 MG CPLT PO PRN (11:30)
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
[2016-09-13 13:12] LABS: CREATINE KINASE 144 U/L (39-308)
[2016-09-13] MEDS ORDERED: NITROGLYCERIN 0.4 MG SL 25 TABS/BTL SL PRN (13:15)
[2016-09-13] MEDS ORDERED: ALPRAZolam 0.25 MG TAB PO PRN (13:15)
[2016-09-13] MEDS ORDERED: DOCUSATE SODIUM 100 MG CAP PO PRN (13:15)
[2016-09-13] MEDS ORDERED: ACETAMINOPHEN 325 MG TAB PO PRN (13:15)
[2016-09-13] MEDS ORDERED: RESP: ALBUTEROL 2.5 MG/IPRATROPIUM 0.5 MG NEB (PRN) NEB (13:45)
[2016-09-13] MEDS ORDERED: HEPARIN SODIUM - IV 10,000 UNITS/10 ML VIAL IV ONE (14:15)
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
[2016-09-13] MEDS: HEPARIN-D5W INJ 250 ML IV SCH ×3 (15:45→20:29)
[2016-09-13] MEDS: LACTATED RINGER'S 1000 ML INJ 1,000 ML IV SCH ×2 (16:00→23:42)
[2016-09-13 16:37] LABS: CREATINE KINASE 125 U/L (39-308)
[2016-09-13 16:49] LABS: CKMB 2.1 NG/ML (0.5-3.6)
[2016-09-13] MEDS ORDERED: IOHEXOL 350 MG/ML 100 ML BTL (for Cath Lab) OTHER ONE (16:55)
[2016-09-13] MEDS ORDERED: HEPARIN-NS/PF INJ 500 ML ONE (17:05)
[2016-09-13] MEDS ORDERED: MIDAZOLAM HCL 2 MG/2 ML VIAL ONE (17:06)
[2016-09-13] MEDS ORDERED: NITROGLYCERIN INJ 5 ML ONE (17:06)
--- NOTE | 2016-09-13 17:41 | CATHPROC ---
[facility] Report Study Information Study Number Admission Scheduled Start Study Start [id number] Sep 13 2016 11:22AM 09/13/2016 Sep 13 2016 4:55PM [place] Service Cardiac Catheterization Admit Source Facility Department Emergency department [facility] - Fire Extinguisher Sprinkler Inspector Physician and Clinical Staff Initial Lamont Hightower Fitter Mechanic Sandra Valderrama RN Fitter Mechanic Lety Martinez BSRN Other cathlab, cathlab Recorder [employer] RCIS(BS) Scrub Bety Nunez,OUTBOUND TELEMARKETING REPRESENTATIVE TECH2 Procedures Performed Procedure Location (Site) Vessel Name Angiogram LV LV Ventricle Coronary Angiograms LCA Left Coronary Coronary Angiograms RCA Right Coronary Equipment Time Hatchery Attendant Description Size Mfg Part Number Used/Scraped TRANSDUCER, TRInteractive Performance SolutionsELGIN [id number] 16:56 SOLER SAM * Used W/STOCKCOCK *[id number] [id number] *[id number] [id number] *[id number] *[id number] 16:56 MEDLINE INDUSTRIES PACK, CCL CUSTOM * Used *[id number] 16:56 E[employer] Ltd PACER PEN, SKIN DUAL W/ RULER * Used *[id number] 16:56 PayClip WIRE, 3MMJ .035 180CM 180CM Used *[id number] PROBE COVER, STERILE [id number] 16:56 GEOCOMtms MEDICAL * Used ULTRASOUND W/ GEL *[id number] 16:56 NAMIC MANIFOLD, 4 PORT * Used *[id number] 16:56 NAMIC TUBING, HIGH PRESSURE 48" 48" Used *[id number] 16:56 NYCOMED OMNIPAQUE, 350 MG, 150ML 150ML [id number] Used [id number] 16:56 M[employer]ER [employer] BLANKET,WARM AIR CCL * Used *[id number] 16:56 TERUMO MEDICAL SHEATH, FR5 TERUMO (10CM) FR 5 [id number] Used History: Current Medications Medication Dosage/Unit Route Frequency Last Date/Time Taken Beta Isabel Statins (any) ASA History: Allergies Allergy Reaction No Known Allergies History: Risk Factors Family History of Hypertension Dyslipidemia Previous MO Previous Heart Failure Premature CAD Yes Yes No Yes No Prior Valve Prior PCI Prior PCIDate Prior CABG Surgery No Yes 01/09/2016 No Cerebrovascular Peripheral Artery Chronic Lung On Dialysis Diabetes Disease Disease Disease No Yes No No No History: Symptoms/Diagnosis Selection Items Chest pain History: CV Disease Selection Items Known CAD History: Stress Tests Stress or Imaging Studies Performed No History: MO/CV Data Previous Cath Date 01/09/2016 History: Other Current Smoker Method Packs a Day Years Used Pack Years Yes Cigarettes 3 40 120 Labs Hgb (g/dl) Hct (%) WBC (l/cumm) Platelets (thousands) 11.60-17.00 35.00-51.00 4.00-11.00 150.00-450.00 15.7 46.9 5.9 191 Glucose (mg/dl) BUN (mg/dl) Creatinine (mg/dl) BUN:Creatinine (1:x) 74.00-106.00 7.00-18.00 0.50-1.30 10.00-20.00 115 17 1.1 15.5 Na (meq/l) K (meq/l) 136.00-145.00 3.50-5.10 137 4 INR (PTT:PT) 0.90-1.10 0.9 Troponin I (ng/ml) CPK-MB (ng/ML) 0.02-0.05 0.50-3.60 0.02 Not Drawn Medication Medication Total Dose (Bolus/Oral) Medication Total Dosage/Unit 1% XYLOCAINE 20 mL FENTANYL 50 mcg VERSED 2 mg Medications (Bolus/Oral) Medication Time Given Dosage/Unit Administered By Reason VERSED 09/13/2016 5:19:37 PM 2 mg Sandra Valderrama 2 mg VERSED given in lab by Sandra Valderrama, LILI in Right Antecubital via Peripheral IV. Ordered by Lamont Evans. 1% XYLOCAINE 09/13/2016 5:19:57 PM 20 mL Lamont Dutton 20 mL 1% XYLOCAINE given in lab by Lamont Dutton in Right Groin via Subcutaneous. FENTANYL 09/13/2016 5:20:02 PM 50 mcg Sandra Valderrama 50 mcg FENTANYL given in lab by Sandra Valderrama, LILI in Right Antecubital via Peripheral IV. Ordered by Lamont Dutton. Medication (Drip) Medication Time Given Dosage/Unit Concentration/Unit Diluent (ml) Solution IV Solutions 09/13/2016 4:55:31 PM 0 mL (IV) 500 NaCl .9 Patient arrived on IV Solutions given by cathlab, cathlab in Right Antecubital via Peripheral IV. Pum p/Drip Flow = 20 ml/hr using NaCl .9. Ordered by Lamont Dutton. Initial Case Assessment Cardiovascular HR Rhythm NIBP Chest Pain 60 SINSU 122/78 0 Edema Present Skin color Skin None Normal Warm Dry Circulatory - Right Pulses Dorsalis Pedis Femoral 3 3 Scale (0,1,2,3,4,d) Circulatory - Left Pulses Dorsalis Pedis Femoral 3 3 Scale (0,1,2,3,4,d) Neurological State Oriented to time-place- Alert Moves all extremities person Respiration - General Respiration Rate SpO2 (%) (B/min) 15 97 Initial Case Assessment Cardiovascular HR Rhythm NIBP Chest Pain 64 SINSU 118/73 0 Edema Present Skin color Skin None Normal Warm Dry Circulatory - Right Pulses Dorsalis Pedis Femoral 3 3 Scale (0,1,2,3,4,d) Circulatory - Left Pulses Dorsalis Pedis Femoral 3 3 Scale (0,1,2,3,4,d) Neurological State Oriented to time-place- Alert Moves all extremities person Respiration - General Respiration Rate SpO2 (%) (B/min) 15 97 Chronological Log Time Study Chronological Log 16:55:23 Patient arrived via Bed. Heparin drip DCed upon cone picker per MD. 16:55:23 Patient Name, D.O.B, / Armband Verified By R.N. 16:55:24 Consent signed by the physician and the patient and verified by the Fire Extinguisher Sprinkler Inspector staff. 16:55:24 Pre-op and post- op instructions given; patient acknowledges understanding of instructions. 16:55:25 Verbal Stimulation=2 Physical Stimulation=2 Airway=2 Respiration=2 TOTAL=8. (0=absent, 1=li mited, 2=present) 16:55:26 Presedation assessment performed by Fire Extinguisher Sprinkler Inspector RN. 16:55:26 Immediate Presedation assesment performed by physician. 16:55:27 Patient has been NPO for More than 6Hrs. 16:55:27 Skin Breakdown- NONE PER PATIENT 16:55:29 Patient Warmer Placed on the Table. 16:55:30 Carolina Prominences Protected 16:55:30 A # 20 IV was noted in the Antecubital (right). Grade = 0 Patient arrived on IV Solutions given by cathlab, cathlab in Right Antecubital via Peripheral I V. Pump/Drip Flow = 20 16:55:31 ml/hr using NaCl .9. Ordered by Lamont Dutton. 16:55:31 History and physical on the chart or being dictated. 16:56:02 MD arrived. Vitals capture started with the following parameters, Patient=Adult, Interval=5 min, Initial Pr zmqlfn=905 mmHg, 17:07:54 Deflation Rate=5 mmHg 17:08:29 HR=59 bpm, QQEX=619/78 mmhg, SpO2=97.0 %, Resp=17 B/min, Pain=0, Tan=10, Olson=2 Assessment: Initial Case, HR=60 BPM, Rhythm=SINSU, NYTU=906/78 mmhg, Chest Pain=0, Edema=None, Color=Normal, Skin = Warm, Dry Right Pulses: David Ped=3, Femoral=3 17:09:23 Left Pulses: David Ped=3, Femoral=3 Neurological: State=Alert, Ox3, LOGAN Respiration: Resp=15 B/min, SpO2=97 % 17:09:49 Bilateral groins prepped with 2% chlorhexidine, and with a 3 min. waiting time. 17:10:23 Contrast Scanned 17:10:25 Immediate Presedation assesment performed by physician. 17:13:09 Reference ECG taken 17:13:28 HR=56 bpm, WENX=903/75 mmhg, SpO2=98.0 %, Resp=12 B/min, Pain=0, Tan=10, Olson=2 17:15:25 Pressure channel 1 zeroed. 17:18:27 HR=58 bpm, OKRB=538/80 mmhg, SpO2=97.0 %, Resp=16 B/min, Pain=0, Tan=10, Olson=2 Time Out. Correct patient, correct procedure,correct physician, ,power injector loaded with con trast with surgical team 17:19:05 present. Time Out Concurred by MD, individual staff and HAIRSPRING ASSEMBLER in procedure 17:19:07 Case Start 17:19:08 Verbal Stimulation=2 Physical Stimulation=2 Airway=2 Respiration=2 TOTAL=8. (0=absent, 1=li mited, 2=present) 17:19:37 2 mg VERSED given in lab by Sandra Valderrama RN in Right Antecubital via Peripheral IV. Or dered by Lamont Dutton. 17:19:57 20 mL 1% XYLOCAINE given in lab by Lamont Dutton in Right Groin via Subcutaneous. 50 mcg FENTANYL given in lab by Sandra Valderrama RN in Right Antecubital via Peripheral IV. Or dered by Marija, 17:20:02 Lamont. 17:20:22 Access site was Right Femoral Artery. 17:20:26 A SHEATH, FR5 TERUMO (10CM) FR 5 was advanced into the Fem Art (right) using the Percutaneo us technique. 17:21:45 Activated Clotting Time Drawn A PIGTAIL ANG. INFINITI CATHETER FR 5 was advanced over a wire. OMNIPAQUE, 350 MG, 150ML 150ML was used 17:21:55 for injections. Recorded Pressure: LV, HR=64, Condition=Condition 1 17:22:24 (Left Ventricle) LV 120/6/10 17:23:30 HR=60 bpm, WTBB=697/73 mmhg, SpO2=94.0 %, Resp=20 B/min, Pain=0, Tan=10, Olson=2 17:23:42 The LV was injected at 10 cc/sec for a total of 30. OMNIPAQUE, 350 MG, 150ML 150ML used. Recorded Pressure: LV, Ao, HR=68, Condition=Condition 1 17:24:14 (Left Ventricle) LV 105/4/9, (Aorta) Ao 112/65/85 17:24:30 Catheter was removed A JL 4.0 INFINITI CATHETER FR 5 was advanced over a wire. OMNIPAQUE, 350 MG, 150ML 150ML was us ed for 17:24:33 injections. 17:27:37 The LCA was injected and visualized at various angles. OMNIPAQUE, 350 MG, 150ML 150ML used . 17:28:29 HR=58 bpm, WCGW=208/72 mmhg, SpO2=96.0 %, Resp=12 B/min, Pain=0, Tan=10, Olson=2 17:30:24 Catheter was removed A AR MOD INFINITI CATHETER FR 5 was advanced over a wire. OMNIPAQUE, 350 MG, 150ML 150ML was us ed for 17:30:26 injections. 17:31:30 The RCA was injected and visualized at various angles. OMNIPAQUE, 350 MG, 150ML 150ML used . 17:33:17 Catheter was removed 17:33:19 Case End 17:33:26 HR=70 bpm, IJHZ=818/78 mmhg, SpO2=98 %, Resp=20 B/min, Pain=0, Tan=10, Olson=2 17:33:26 Cine recording checked. 17:34:02 Activated Clotting Time Drawn 17:38:26 ACT (Normal Range 90-180) = 200 17:38:29 HR=62 bpm, ZYTA=576/73 mmhg, SpO2=98.0 %, Resp=12 B/min, Pain=0, Tan=10, Olson=2 Assessment: Initial Case, HR=64 BPM, Rhythm=SINSU, VMGF=215/73 mmhg, Chest Pain=0, Edema=None, Color=Normal, Skin = Warm, Dry Right Pulses: David Ped=3, Femoral=3 17:38:55 Left Pulses: David Ped=3, Femoral=3 Neurological: State=Alert, Ox3, LOGAN Respiration: Resp=15 B/min, SpO2=97 % 17:39:02 In the Fem Art (right) the SHEATH, FR5 TERUMO (10CM) FR [address] by Escobar Nunez, OUTBOUND TELEMARKETING REPRESENTATIVE TECH2. 17:39:08 Sterile dressing applied to site 17:39:09 No case complications noted. 17:39:11 Bedside Report will be given. 17:39:14 Contrast Scanned 17:39:15 Verbal Stimulation=2 Physical Stimulation=2 Airway=2 Respiration=2 TOTAL=8. (0=absent, 1=l imited, 2=present) 17:39:25 Patient moved to stretcher 17:39:28 Vitals capture stopped. End Study - Contrast Media Used In Study Contrast Total Opened (mL) Total Used (mL) Total Wasted (mL) Omnipaque 80 80 0 End Study - Maximum Contrast Load Max Contrast Load (mL) 418.2 End Study - Radiation Exposure Fluoro Time (minutes) 1.5 End Study - Patient Disposition Complications Transferred To Interventional Outcome No Telemetry Bed No attempt made
[2016-09-13] MEDS ORDERED: HEPARIN SODIUM - IV 10,000 UNITS/10 ML VIAL IV PRN ×2 (20:15)
[2016-09-13] MEDS: SODIUM CHLORIDE 0.9% FLUSH 10 ML FLUSH IV FLUSH SCH (20:35)
[2016-09-13] MEDS: BUDESONIDE-FORMOTEROL 160/4.5 MCG INHALER INH SCH (20:36)
[2016-09-13] MEDS ORDERED: ATORVASTATIN 10 MG TAB PO SCH (21:00)
[2016-09-13] MEDS ORDERED: ASPIRIN 81 MG CHEW TAB CHEW SCH (21:00)
[2016-09-13] MEDS ORDERED: SODIUM CHLORIDE 0.9% FLUSH 10 ML FLUSH IV FLUSH SCH (21:00)
[2016-09-14] VITALS (7 sets, daily range): BP systolic 121–145; BP diastolic 73–85; PULSE 63–74; RESP 16–18; TEMP 97.8–97.9; O2SAT 96–98
[2016-09-14 00:19] LABS: CREATINE KINASE 107 U/L (39-308)
[2016-09-14 00:32] LABS: CKMB 1.6 NG/ML (0.5-3.6)
[2016-09-14 06:22] LABS: AUTOMATED NEUTROPHIL # 3.5 TH/MM3 (1.8-7.7); BASOPHIL # 0.1 TH/MM3 (0-0.2); BASOPHIL % 1.1 % (0.0-2.0); EOSINOPHIL # 0.2 TH/MM3 (0-0.4); EOSINOPHIL % 2.8 % (0.0-4.0); HEMATOCRIT 44.1 % (39.0-51.0); HEMO FLAGS DIFF FINAL; LYMPH % 30.5 % (9.0-44.0); LYMPHOCYTE # 1.8 TH/MM3 (1.0-4.8); MEAN CELL VOLUME 91.6 FL (80.0-100.0); MEAN CORPUSCULAR HEMOGLOBIN 30.9 PG (27.0-34.0); MEAN CORPUSCULAR HGB CONC 33.8 % (32.0-36.0); MONO % 6.8 % (0.0-8.0); NEUT % 58.8 % (16.0-70.0); PLATELET COUNT 187 TH/MM3 (150-450); RED BLOOD COUNT 4.82 MIL/MM3 (4.50-5.90); RED CELL DISTRIBUTION WIDTH 13.8 % (11.6-17.2)
[2016-09-14 06:50] LABS: ANION GAP 5 MEQ/L (5-15); BICARBONATE 25.5 MEQ/L (21.0-32.0); BLOOD UREA NITROGEN 16 MG/DL (7-18); CHLORIDE 107 MEQ/L (98-107); GLOMERULAR FILTRATION RATE 90 ML/MIN (>89); SODIUM (NA) 137 MEQ/L (136-145)
[2016-09-14 06:55] LABS: CREATINE KINASE 94 U/L (39-308)
[2016-09-14] MEDS: LACTATED RINGER'S 1000 ML INJ 1,000 ML IV SCH (07:24)
[2016-09-14] MEDS ORDERED: ATOR40TA16 PO (08:44)
[2016-09-14] MEDS ORDERED: CARV3.125 PO (08:44)
[2016-09-14] MEDS ORDERED: NITR0.4S SL (08:44)
[2016-09-14] MEDS ORDERED: VENTAER INH (08:45)
--- NOTE | 2016-09-14 08:48 | HHI.DCPOC ---
Discharge Care Plan Diagnosis: (1) CAD (coronary artery disease) (2) Unstable angina Goals to Promote Your Health * To prevent worsening of your condition and complications, please take medications as prescribed and quit smoking. * To maintain your health at the optimal level, quit smoking and follow up with your doctor. Directions to Meet Your Goals Take your medications as prescribed Follow your dietary instruction Follow activity as directed Keep your appointments as scheduled Take your immunizations and boosters as scheduled If your symptoms worsen call your PCP, if no PCP go to Urgent Care Center or Emergency Room Smoking is Dangerous to Your Health. Avoid second hand smoke Call the 24-hour hour crisis hotline for domestic abuse at Marquise Gates MD R1 Sep 14, 2016 08:48
[2016-09-14] MEDS ORDERED: OMEP40CA2 PO (08:54)
[2016-09-14] MEDS ORDERED: LISINOPRIL 5 MG TAB PO SCH (09:00)
[2016-09-14] MEDS ORDERED: CARVEDILOL 3.125 MG TAB PO SCH (09:00)
[2016-09-14] MEDS ORDERED: PANTOPRAZOLE SOD 40 MG DELAYED RELEASE TAB PO SCH (09:00)
[2016-09-14] MEDS ORDERED: CLOPIDOGREL 75 MG TAB PO SCH (09:00)
[2016-09-14] MEDS: SODIUM CHLORIDE 0.9% FLUSH 10 ML FLUSH IV FLUSH SCH (09:20)
[2016-09-14] MEDS: BUDESONIDE-FORMOTEROL 160/4.5 MCG INHALER INH SCH (09:20)
--- NOTE | 2016-09-14 10:35 | MA ---
cc: AMY RODRIGUEZ DATE: 09/13/2016 PROCEDURE Cardiac catheterization. INDICATIONS Unstable angina, coronary artery disease, history of left circumflex stenting. ACCESS SITE Right femoral artery. EQUIPMENT USED 5-Frisian pigtail catheter, JL4 and AR modified coronary catheters. MEDICATIONS Versed IV, fentanyl IV. CONTRAST Omnipaque 80 cc. COMPLICATIONS None. ESTIMATED BLOOD LOSS Less than 10 cc. METHOD OF HEMOSTASIS Manual compression. RESULTS HEMODYNAMICS Heart rate 65 beats per minute. Left end-diastolic pressure 4 mmHg. Left ventricle 10/4. Aorta 100/65/85. LEFT VENTRICULOGRAM Left ventricular ejection fraction 50%. Wall motion normal. No mitral regurgitation. CORONARY ANGIOGRAPHY The left main coronary artery is patent. The left anterior descending is patent. D1 is large and patent. The left circumflex artery has a patent stent in the midportion. OM1 has 50% focal stenosis in the proximal portion. OM2 is patent. The right coronary artery is a large dominant vessel which is patent. PDA patent. PLV patent. DIAGNOSIS 1. Moderate nonobstructive coronary artery disease with patent stent in the left circumflex artery. 2. Borderline normal left ventricular systolic function. DISPOSITION Mr. Johnson can be reassured about his cardiac status. The stent in his left circumflex artery remains patent. The stenosis in his first marginal artery is also unchanged. Recommend to continue aggressive modification of his cardiac risk factors. He was strongly encouraged to quit smoking. [facility]. MD BRET Forman/ADOLFO /5:46 PM /10:27 AM
--- NOTE | 2016-09-14 12:24 | HHI.FPPN ---
Subjective Remarks 56 y/o M w/hx of HTN, COPD, and hx of KS w/stent placement who is admitted for chest pain. No acute events overnight. Patient states he feels good today, no repeat chest pain or new onset shortness of breath since cath yesterday. Reports "nothing was found" on cath. (Anu Sapp MD R1) Objective Vitals Vital Signs Date Time Temp Pulse Resp B/P Pulse Ox O2 Delivery O2 Flow Rate FiO2 09/14/16 11:17 97.9 74 18 125/75 98 09/14/16 09:41 98 21 09/14/16 08:05 71 09/14/16 07:48 97.8 71 18 134/85 98 09/14/16 04:01 97.8 63 16 121/73 96 09/14/16 03:01 97.8 63 16 121/73 96 09/14/16 00:48 97.9 67 16 145/81 96 09/13/16 23:58 97 09/13/16 23:01 97.9 70 16 118/75 96 09/13/16 23:01 70 09/13/16 20:01 98.2 69 16 120/72 97 09/13/16 19:25 97.9 69 16 116/77 97 09/13/16 17:50 96 Room Air 09/13/16 13:36 97.6 60 16 128/77 98 09/13/16 12:59 60 16 127/81 96 Room Air I/O 09/13/16 09/13/16 09/13/16 09/14/16 09/14/16 09/14/16 07:00 15:00 23:00 07:00 15:00 23:00 Intake Total 240 ml Balance 240 ml Intake Oral 240 ml # Voids 1 # Bowel Movements 0 (Anu Sapp MD R1) Result Diagram: 09/14/16 0505 09/14/16 0505 Imaging Last 48 hours Impressions Chest X-Ray 09/13/16 0941 Signed Impressions: Service Date/Time: Tuesday, September 13, 2016 09:42 - CONCLUSION: Normal examination. Sherman Kapoor MD Objective Remarks GENERAL: Well-nourished, well-developed patient. SKIN: Warm and dry. HEAD: Normocephalic. EYES: No scleral icterus. No injection or drainage. NECK: Supple, trachea midline. No JVD. CARDIOVASCULAR: Regular rate and rhythm without murmurs, gallops, or rubs. RESPIRATORY: Breath sounds equal bilaterally. No accessory muscle use. GASTROINTESTINAL: Abdomen soft, tender to palpation in the epigastric area, nondistended. EXTREMITIES: No cyanosis, or edema. NEUROLOGICAL: Awake, alert, and oriented x 3. Non-focal. Medications and IVs Current Medications Medications (Trade) Dose Ordered Sig/Saturnino Route Start Time Stop Time Status Last Admin (NS Flush) 2 ml BID IV FLUSH 09/13/16 21:00 09/14/16 09:20 (NS Flush) 2 ml UNSCH PRN IV FLUSH 09/13/16 13:15 (Nitrostat Sl) 0.4 mg Q5M PRN SL 09/13/16 13:15 (Tylenol) 650 mg Q6H PRN PO 09/13/16 13:15 (Colace) 100 mg BID PRN PO 09/13/16 13:15 (Xanax) 0.25 mg Q8H PRN PO 09/13/16 13:15 (Zofran Inj) 4 mg Q6H PRN IV 09/13/16 13:15 (Protonix) 40 mg DAILY PO 09/14/16 09:00 09/14/16 09:19 (Aspirin Chew) 81 mg HS CHEW 09/13/16 21:00 09/13/16 20:34 (Symbicort 160-4.5 Inh) 2 puff Q12HR INH 09/13/16 21:00 09/14/16 09:20 (Plavix) 75 mg DAILY PO 09/14/16 09:00 09/14/16 09:19 Lisinopril 5 mg 5 mg DAILY PO 09/14/16 09:00 09/14/16 09:19 (Lr 1000 ml Inj) 1,000 ml @ 130 mls/hr Q7H42M IV 09/13/16 16:00 (Coreg) 3.125 mg Q12HR PO 09/14/16 09:00 09/14/16 09:25 (Lipitor) 40 mg HS PO 09/14/16 21:00 (AbidAnu MD R1) A/P Assessment and Plan 56 y/o M w/hx of HTN, COPD, and hx of KS w/stent placement who is admitted for chest pain. ACS r/o performed w/ECG and cardiac enzymes, all of which were negative. Seen by cardiology, underwent cath 09/14. No abnormalities found. Pain likely due to unstable angina. Will optimize medications with addition of carvedilol and increase atorvastatin to 40 mg. Will need to continue home medications and f/u with cardiology and PCP in a week. Discharge Planning D/C today (Anu Sapp MD R1) Attending Attestation Patient seen, examined, and discussed with resident team. I agree with assessment and management as documented and discussed with me. Pt reports that chest pain has improved. He is POD#1 from cath. Medical management has been recommended by cardiology - add carvedilol and maximize statin as documented by Dr. Sapp. Discharge home today. (Heavenly Aguilera MD) Problem List: (1) Unstable angina Status: Acute Plan: Chest pain beginning since 1am on 09/13, improved with nitro. ECG unchanged from previous (normal sinus and RBBB). - likely due to unstable angina - cardio consulted, cardiac cath on 09/14. No abnormal findings. - add carvedilol - stop heparin today, d/c on home plavix and aspirin - will con't home meds lisinopril and atorvastatin - duonebs PRN in addition to patient's home symbicort 2 puff daily - will need to f/u w/ cardio OP and PCP (2) Upper abdominal pain Status: Acute Plan: epigastric pain that is tender to palpation; likely untreated GERD according to patient hx - IV PPI - d/c with PO PPI, will need to follow up w/a PCP OP (3) COPD (chronic obstructive pulmonary disease) Status: Chronic Plan: Stable - satting on room air, RR 16 - con't home symbicort - duonebs PRN - O2 as needed (4) Hypertension Status: Chronic Plan: stable -con't home lisinopril - add carvedilol today (5) Hyperlipidemia Status: Chronic Plan: - will increase home atorvastatin to 40 mg, con't daily (6) H/O heart artery stent Status: Chronic Plan: - con't clopidogrel 75 mg daily PO - con't aspirin 81 mg daily (7) FEN Status: Chronic Plan: FEN: Maintenance IVF (will dc since no longer NPO), heart healthy, correct electrolytes as needed DVT prophy: stop heparin today, initiate home plavix and aspirin GI prophy: PO PPI (Anu Sapp MD R1) Anu Sapp MD R1 Sep 14, 2016 12:24 Heavenly Aguilera MD Sep 14, 2016 20:37
--- NOTE | 2016-09-14 16:08 | PD.CARD.PN ---
Subjective Subjective Remarks No CP or SOB, feels well Objective Vital Signs / I&O Vital Signs Date Time Temp Pulse Resp B/P Pulse Ox O2 Delivery O2 Flow Rate FiO2 09/14/16 11:17 97.9 74 18 125/75 98 09/14/16 09:41 98 21 09/14/16 08:05 71 09/14/16 07:48 97.8 71 18 134/85 98 09/14/16 04:01 97.8 63 16 121/73 96 09/14/16 03:01 97.8 63 16 121/73 96 09/14/16 00:48 97.9 67 16 145/81 96 09/13/16 23:58 97 09/13/16 23:01 97.9 70 16 118/75 96 09/13/16 23:01 70 09/13/16 20:01 98.2 69 16 120/72 97 09/13/16 19:25 97.9 69 16 116/77 97 09/13/16 17:50 96 Room Air I/O 09/13/16 09/13/16 09/13/16 09/14/16 09/14/16 09/14/16 07:00 15:00 23:00 07:00 15:00 23:00 Intake Total 240 ml Balance 240 ml Intake Oral 240 ml # Voids 1 # Bowel Movements 0 Physical Exam GENERAL: In NAD SKIN: Warm and dry. HEAD: Normocephalic. EYES: No scleral icterus. No injection or drainage. NECK: Supple, trachea midline. No JVD or lymphadenopathy. CARDIOVASCULAR: Regular rate and rhythm without murmurs, gallops, or rubs. RESPIRATORY: Breath sounds equal bilaterally. No accessory muscle use. GASTROINTESTINAL: Abdomen soft, non-tender, nondistended. MUSCULOSKELETAL: No cyanosis, or edema. R groin stable Laboratory Laboratory Tests Test 09/13/16 09/14/16 23:31 05:05 Total Creatine Kinase 107 U/L 94 U/L Creatine Kinase MB 1.6 NG/ML Troponin I LESS THAN 0.02 LESS THAN 0.02 NG/ML NG/ML White Blood Count 6.0 TH/MM3 Red Blood Count 4.82 MIL/MM3 Hemoglobin 14.9 GM/DL Hematocrit 44.1 % Mean Corpuscular Volume 91.6 FL Mean Corpuscular Hemoglobin 30.9 PG Mean Corpuscular Hemoglobin 33.8 % Concent Red Cell Distribution Width 13.8 % Platelet Count 187 TH/MM3 Mean Platelet Volume 8.2 FL Neutrophils (%) (Auto) 58.8 % Lymphocytes (%) (Auto) 30.5 % Monocytes (%) (Auto) 6.8 % Eosinophils (%) (Auto) 2.8 % Basophils (%) (Auto) 1.1 % Neutrophils # (Auto) 3.5 TH/MM3 Lymphocytes # (Auto) 1.8 TH/MM3 Monocytes # (Auto) 0.4 TH/MM3 Eosinophils # (Auto) 0.2 TH/MM3 Basophils # (Auto) 0.1 TH/MM3 CBC Comment DIFF FINAL Differential Comment Sodium Level 137 MEQ/L Potassium Level 4.0 MEQ/L Chloride Level 107 MEQ/L Carbon Dioxide Level 25.5 MEQ/L Anion Gap 5 MEQ/L Blood Urea Nitrogen 16 MG/DL Creatinine 0.87 MG/DL Estimat Glomerular Filtration 90 ML/MIN Rate Random Glucose 103 MG/DL Calcium Level 8.3 MG/DL Imaging Last Impressions Chest X-Ray 09/13/16 0941 Signed Impressions: Service Date/Time: Tuesday, September 13, 2016 09:42 - CONCLUSION: Normal examination. Sherman Kapoor MD Assessment and Plan Problem List: (1) Chest pain (2) CAD (coronary artery disease) (3) Tobacco abuse (4) Hypertension (5) Hyperlipidemia Assessment and Plan Cath with no evidence of disease progression and patent cx stent. Continue current program including aggressive risk factor modification. Increase activity. OK to discharge home. [facility] Problem Qualifiers (1) Chest pain: Qualified Code: R07.9 - Chest pain, unspecified type Lamont Dutton MD Sep 14, 2016 16:08
--- NOTE | 2016-09-14 18:21 | EKG ---
Date Performed: 09/14/2016 Time Performed: 05:40:48 PTAGE: 56 years EKG: Sinus rhythm Possible left atrial abnormality Inferior and lateral ST elevation, CONSIDER ACUTE INFARCT ST juncti onal depression is nonspecific Abnormal ECG PREVIOUS TRACING : 09/13/2016 15.42 Compared to prior tracing no significant change DOCTOR: Jerel Hardy Interpretating Date/Time 09/14/2016 18:20:37
--- NOTE | 2016-09-14 19:02 | EKG ---
Date Performed: 09/13/2016 Time Performed: 15:42:41 PTAGE: 56 years EKG: SINUS BRADYCARDIA RIGHT BUNDLE BRANCH BLOCK ABNORMAL ECG PREVIOUS TRACING : 09/13/2016 12.29 Compared to prior tracing no significant change DOCTOR: Jerel Hardy Interpretating Date/Time 09/14/2016 19:01:12
--- NOTE | 2016-09-14 19:15 | EKG ---
Date Performed: 09/13/2016 Time Performed: 12:29:46 PTAGE: 56 years EKG: Sinus rhythm RIGHT BUNDLE BRANCH BLOCK ABNORMAL ECG PREVIOUS TRACING : 09/13/2016 09.08 Compared to prior tracing no significant change DOCTOR: Jerel Hardy Interpretating Date/Time 09/14/2016 19:14:07
--- NOTE | 2016-09-14 19:25 | EKG ---
Date Performed: 09/13/2016 Time Performed: 09:08:51 PTAGE: 56 years EKG: Sinus rhythm RIGHT BUNDLE BRANCH BLOCK ABNORMAL ECG PREVIOUS TRACING : 07/23/2016 11.59 Compared to prior tracing no significant change DOCTOR: Jerel Hardy Interpretating Date/Time 09/14/2016 19:24:07
[2016-09-14] MEDS ORDERED: ATORVASTATIN 40 MG TAB PO SCH (21:00)
== END 2016-09-14 12:20 | disposition home or self-care (01) ==
LOC: NEPE 08:52 → NEDA 11:22 → NEPFCDU 13:26 → HCIS 17:00
PROVIDERS: ADMIT Family Medicine; ATTEND Family Medicine
DX: I25.10 Atherosclerotic heart disease of native coronary artery without angina pectoris (principal); I10 Essential (primary) hypertension; F17.200 Nicotine dependence, unspecified, uncomplicated; J44.9 Chronic obstructive pulmonary disease, unspecified; E78.5 Hyperlipidemia, unspecified; B19.20 Unspecified viral hepatitis C without hepatic coma; K21.9 Gastro-esophageal reflux disease without esophagitis; I25.2 Old myocardial infarction; Z79.899 Other long term (current) drug therapy; Z79.82 Long term (current) use of aspirin; F14.21 Cocaine dependence, in remission; R94.31 Abnormal electrocardiogram [ECG] [EKG]; Z98.61 Coronary angioplasty status; Z71.6 Tobacco abuse counseling
CPT/HCPCS: 71010; 80048; 80053; 82550; 82552; 83690; 84484; 85002; 85025; 85347; 85610; 85730; 93005; 93458; 99285; C1769; C1893; G0378; J1644; J2250; J3010; Q9967

== ENCOUNTER 2016-12-08 02:23 | Observation (INO) | payer OTHER ==
[2016-12-08] VITALS (12 sets, daily range): BP systolic 104–143; BP diastolic 62–85; PULSE 56–89; RESP 15–22; TEMP 97.5–99.5; O2SAT 94–96
[~2016-12-08] VITALS: Ht 180.3 cm; Wt 87.0 kg
[~2016-12-08 02:23] MED LIST changes: +ATOR40TA16 PO; +CARV3.125 PO; -LIPI10TA PO; -METO25TA3 PO; +OMEP40CA2 PO; +VENTAER INH
[2016-12-08 02:59] LABS: AUTOMATED NEUTROPHIL # 4.5 TH/MM3 (1.8-7.7); BASOPHIL # 0.1 TH/MM3 (0-0.2); BASOPHIL % 1.4 % (0.0-2.0); EOSINOPHIL # 0.4 TH/MM3 (0-0.4); EOSINOPHIL % 4.4 % (0.0-4.0); HEMATOCRIT 44.5 % (39.0-51.0); HEMO FLAGS DIFF FINAL; LYMPH % 28.9 % (9.0-44.0); LYMPHOCYTE # 2.3 TH/MM3 (1.0-4.8); MEAN CELL VOLUME 90.3 FL (80.0-100.0); MEAN CORPUSCULAR HEMOGLOBIN 30.9 PG (27.0-34.0); MEAN CORPUSCULAR HGB CONC 34.2 % (32.0-36.0); MONO % 8.4 % (0.0-8.0); NEUT % 56.9 % (16.0-70.0); PLATELET COUNT 217 TH/MM3 (150-450); RED BLOOD COUNT 4.93 MIL/MM3 (4.50-5.90); RED CELL DISTRIBUTION WIDTH 13.1 % (11.6-17.2)
[2016-12-08] MEDS ORDERED: SODIUM CHLORIDE 0.9% FLUSH 10 ML FLUSH IVF PRN (03:00)
[2016-12-08] MEDS ORDERED: ASPIRIN 81 MG CHEW TAB PO ONE (03:00)
[2016-12-08] MEDS ORDERED: NITROGLYCERIN 0.4 MG SL 25 TABS/BTL SL ONE ×2 (03:00→04:15)
[2016-12-08] MEDS ORDERED: NITROGLYCERIN 2% OINT 1 GM PACKET TOP ONE (03:00)
[2016-12-08 03:11] LABS: APTT (PATIENT) 28.5 SEC (24.3-30.1); INTERNATIONAL NORMALIZED RATIO 0.9 RATIO
--- NOTE | 2016-12-08 03:28 | RADRPT ---
EXAM DATE/TIME: 12/08/2016 03:02 [place] COMPARISON: CHEST SINGLE AP, September 13, 2016, 9:42. INDICATIONS : Chest pain. MEDICAL HISTORY : Chronic obstructive pulmonary disease. Myocardial infarction SURGICAL HISTORY : Coronary artery stent. ENCOUNTER: Initial ACUITY: 1 day PAIN SCORE: 9/10 LOCATION: Bilateral chest FINDINGS: A single view of the chest demonstrates the lungs to be symmetrically aerated without evidence of mas s, infiltrate or effusion. The cardiomediastinal contours are unremarkable. Osseous structures are intact. CONCLUSION: No acute disease. Axel Villalobos MD on December 08, 2016 at 3:27 Board Certified Radiologist. This report was verified electronically.
[2016-12-08 03:30] LABS: ALKALINE PHOSPHATASE 155 U/L (45-117); ALT (GPT) 37 U/L (12-78); ANION GAP 6 MEQ/L (5-15); AST (GOT) 29 U/L (15-37); BICARBONATE 23.3 MEQ/L (21.0-32.0); BLOOD UREA NITROGEN 22 MG/DL (7-18); CHLORIDE 106 MEQ/L (98-107); CREATINE KINASE 146 U/L (39-308); GLOMERULAR FILTRATION RATE 66 ML/MIN (>89); MAGNESIUM 2.1 MG/DL (1.5-2.5); POTASSIUM 4.2 MEQ/L (3.5-5.1); SODIUM (NA) 135 MEQ/L (136-145); TOTAL BILIRUBIN ADULT 0.3 MG/DL (0.2-1.0)
--- NOTE | 2016-12-08 03:36 | PD ---
HPI Chief Complaint: Chest Pain Time Seen by Provider: 02:46 Travel History International Travel<30 days: No Contact w/Intl Traveler<30days: No Traveled to known affect area: No History of Present Illness HPI The patient is a 56 year old male who presents to the [facility] emergency department with a history of chest pain that he reports began 24 hours ago. He reports that the pain is been constant. He reports that the pain waxes and wanes in severity. He reports that the pain starts in the left side of his neck and goes down the left side of his chest and into the left arm. He reports that he has associated diaphoresis, shortness of breath, and nausea. He reports that he had a myocardial infarction in December 2015 with a stent placed at that time. He reports that he is followed by the [facility] for his primary care. He reports that he missed taking his dose of Plavix for the last 2 days as he takes in the morning and was late for work. He reports that 2 days ago he did have a severe cough and an episode of acid reflux. He reports that he has been taking his acid reflux medication on a regular basis, however he cannot recall the name of it. On review of systems, the patient denies having any recent fevers, congestion, abdominal pain, vomiting, urinary symptoms, or neurologic symptoms. The patient reports that he has had diarrhea for the last 2-3 days approximately 2-3 times per day. He denies having any known blood in his stool. [facility] Past Medical History Narrative Medical The patient's past medical history is significant for coronary artery disease with stent placement in December 2015, history of COPD, hepatitis C, hypertension, hyperlipidemia. Hx Anticoagulant Therapy: Yes (PLAVIX) Asthma: No Autoimmune Disease: Yes (Hep C ) Depression: Yes Heart Rhythm Problems: No Cardiac Catheterization: Yes (1 STENT PLACED IN 12/2015) Cardiovascular Problems: Yes High Cholesterol: Yes Congestive Heart Failure: No COPD: Yes Cerebrovascular Accident: Yes Coronary Artery Disease: Yes Diabetes: No Diminished Hearing: No Endocrine: No GERD: Yes Genitourinary: No Hepatitis: Yes (HEP C ) Hypertension: Yes Neurologic: No Reproductive: No Respiratory: Yes (COPD) Myocardial Infarction: Yes (12/2015) Pneumonia: Yes Influenza Vaccination: No Past Surgical History Narrative Surgical The patient's past surgical history is significant for cardiac catheterization with stent placement, dental extractions. Cardiac Surgery: Yes (stent(01/09/16)) Coronary Artery Bypass Graft: No Coronary Stent: Yes (01/10/2016) Oral Surgery: Yes (teeth removed) Family History Family Myocardial Infarction: Yes (FATHER) Social History Alcohol Use: Yes (ONCE WEEKLY. LAST DRINK A WEEK AGO.) Tobacco Use: Yes (2-3 packs a day x 40 years ) Substance Use: No Allergies-Medications (Allergen,Severity, Reaction): Coded Allergies: No Known Allergies (Unverified , 12/08/16) Reported Meds & Prescriptions Reported Meds & Active Scripts Active Omeprazole 40 Mg Cap 40 Mg PO DAILY Ventolin Hfa 18 GM Inh (Albuterol Sulfate) 90 Mcg/Act Aer 2 Puff INH Q4-6H PRN Nitrostat SL (Nitroglycerin) 0.4 Mg Subl 0.4 Mg SL Q5M PRN Atorvastatin (Atorvastatin Calcium) 40 Mg Tab 40 Mg PO HS Coreg (Carvedilol) 3.125 Mg Tab 3.125 Mg PO Q12HR Lisinopril 5 Mg Tab 5 Mg PO DAILY 30 Days Symbicort Inh (Budesonide/Formoterol Fumarate) 160-4.5 Mcg/Act Aero 2 Puff INH Q12HR 30 Days Reported Plavix (Clopidogrel Bisulfate) 75 Mg Tab 75 Mg PO DAILY Aspirin Childrens (Aspirin) 81 Mg Chew 81 Mg CHEW HS Review of Systems Except as stated in HPI: all other systems reviewed are Neg General / Constitutional: No: Fever Eyes: No: Visual changes HENT: No: Headaches Cardiovascular: No: Chest Pain or Discomfort Respiratory: No: Shortness of Breath Gastrointestinal: No: Abdominal Pain Genitourinary: No: Dysuria Musculoskeletal: No: Pain Skin: No Rash Neurologic: No: Weakness Psychiatric: No: Depression Endocrine: No: Polydipsia Hematologic/Lymphatic: No: Easy Bruising Physical Exam Narrative General: The patient is a well-developed well-nourished male in no acute distress. Head and Neck exam: Head is normocephalic atraumatic. Eyes: EOMI, pupils are equal round and reactive to light. Nose: Midline septum with pink mucous membranes Mouth: Dentition unremarkable. Moist mucus membranes. Posterior oropharynx is not erythematous. No tonsillar hypertrophy. Uvula midline. Airway patent. Neck: No palpable lymphadenopathy. No nuchal rigidity. No thyromegaly. Cardiovascular: Regular rate and rhythm without murmurs, gallops, or rubs. Lungs: Clear to auscultation bilaterally. No wheezes, rhonchi, or rales. Abdomen: Soft, with tenderness on palpation of the midepigastric area, no other tenderness on palpation of the other quadrants of the abdomen. No guarding, rebound, or rigidity. Normal bowel sounds are audible. No tenderness on palpation of McBurney's point. Negative Sheffield sign. Extremities: No clubbing, cyanosis, or edema. 2+ pulses in all 4 extremities. No calf tenderness on palpation. Back: No costovertebral angle tenderness to palpation. Neurologic Exam: Grossly nonfocal. Skin Exam: No rash noted. Intact skin that is warm and dry. Data Data Last Documented VS Vital Signs Date Time Temp Pulse Resp B/P (MAP) Pulse Ox O2 Delivery O2 Flow Rate FiO2 12/08/16 04:13 98.4 89 18 113/64 (80) 96 Room Air Orders Orders Electrocardiogram (12/08/16 02:47) B-Type Natriuretic Peptide (12/08/16 02:47) Ckmb (Isoenzyme) Profile (12/08/16 02:47) Complete Blood Count With Diff (12/08/16 02:47) Comprehensive Metabolic Panel (12/08/16 02:47) Magnesium (Mg) (12/08/16 02:47) Prothrombin Time / Inr (Pt) (12/08/16 02:47) Act Partial Throm Time (Ptt) (12/08/16 02:47) Troponin I (12/08/16 02:47) Lipase (12/08/16 02:47) Chest, Single Ap (12/08/16 02:47) Ecg Monitoring (12/08/16 02:47) Bilateral Bp Monitoring (12/08/16 02:47) Iv Access Insert/Monitor (12/08/16 02:47) Oximetry (12/08/16 02:47) Oxygen Administration (12/08/16 02:47) Aspirin Chew (Aspirin Chew) (12/08/16 03:00) Nitroglycerin 2% Oint (Nitroglycerin 2% (12/08/16 03:00) Sodium Chloride 0.9% Flush (Ns Flush) (12/08/16 03:00) Nitroglycerin Sl (Nitrostat Sl) (12/08/16 03:00) CKMB (12/08/16 02:45) CKMB% (12/08/16 02:45) Nitroglycerin Sl (Nitrostat Sl) (12/08/16 04:15) Morphine Inj (Morphine Inj) (12/08/16 04:15) Ondansetron Inj (Zofran Inj) (12/08/16 04:15) Sodium Chlorid 0.9% 500 Ml Inj (Ns 500 M (12/08/16 04:15) Pantoprazole Inj (Protonix Inj) (12/08/16 05:00) Admit Order (Ed Use Only) (12/08/16 04:52) Labs Laboratory Tests Test 12/08/16 02:45 White Blood Count 8.0 TH/MM3 Red Blood Count 4.93 MIL/MM3 Hemoglobin 15.2 GM/DL Hematocrit 44.5 % Mean Corpuscular Volume 90.3 FL Mean Corpuscular Hemoglobin 30.9 PG Mean Corpuscular Hemoglobin Concent 34.2 % Red Cell Distribution Width 13.1 % Platelet Count 217 TH/MM3 Mean Platelet Volume 8.0 FL Neutrophils (%) (Auto) 56.9 % Lymphocytes (%) (Auto) 28.9 % Monocytes (%) (Auto) 8.4 % Eosinophils (%) (Auto) 4.4 % Basophils (%) (Auto) 1.4 % Neutrophils # (Auto) 4.5 TH/MM3 Lymphocytes # (Auto) 2.3 TH/MM3 Monocytes # (Auto) 0.7 TH/MM3 Eosinophils # (Auto) 0.4 TH/MM3 Basophils # (Auto) 0.1 TH/MM3 CBC Comment DIFF FINAL Differential Comment Prothrombin Time 10.0 SEC Prothromb Time International Ratio 0.9 RATIO Activated Partial Thromboplast Time 28.5 SEC Blood Urea Nitrogen 22 MG/DL Creatinine 1.15 MG/DL Random Glucose 148 MG/DL Total Protein 6.7 GM/DL Albumin 3.0 GM/DL Calcium Level 8.1 MG/DL Magnesium Level 2.1 MG/DL Alkaline Phosphatase 155 U/L Aspartate Amino Transf (AST/SGOT) 29 U/L Alanine Aminotransferase (ALT/SGPT) 37 U/L Total Bilirubin 0.3 MG/DL Sodium Level 135 MEQ/L Potassium Level 4.2 MEQ/L Chloride Level 106 MEQ/L Carbon Dioxide Level 23.3 MEQ/L Anion Gap 6 MEQ/L Estimat Glomerular Filtration Rate 66 ML/MIN Total Creatine Kinase 146 U/L Creatine Kinase MB 1.8 NG/ML Troponin I LESS THAN 0.02 NG/ML B-Type Natriuretic Peptide 17 PG/ML Lipase 210 U/L [facility] Medical Decision Making Medical Screen Exam Complete: Yes Emergency Medical Condition: Yes Medical Record Reviewed: Yes Interpretation(s) Last Impressions Chest X-Ray 12/08/16 0247 Signed Impressions: Service Date/Time: Thursday, December 08, 2016 03:02 - CONCLUSION: No acute disease. Axel Villalobos MD Cervical Spine CT 12/08/16 0000 Signed Impressions: Service Date/Time: Thursday, December 08, 2016 08:17 - CONCLUSION: 1. Degenerative changes including areas of abutment of the cord as detailed above. Neural foramina are patent bilaterally. Jefferson Ramos Jr., MD Differential Diagnosis Acute coronary syndrome, versus acid reflux, versus pancreatitis, versus cervical radiculopathy Narrative Course During the course of the patients emergency department visit, the patients history, examination, and differential diagnosis were reviewed with the patient. The patient had IV access obtained and blood work sent for analysis. The patient was placed on a boat designer with oximetry and blood pressure monitoring. An ECG was done on arrival. The patient's ECG reveals a sinus rhythm heart rate is 76, right bundle branch block. No acute ST segment elevation or depression, T waves are inverted in V1. The patient was initially provided aspirin 324 mg by mouth 1. Nitroglycerin sublingual when necessary chest pain 1. Nitroglycerin 1 inch the chest wall. The patient is given morphine for pain, Zofran for nausea. The patient was started on Protonix 40 mg IV. The patients laboratory studies were reviewed and remarkable for white count of 8, hemoglobin 15.2, platelets 217 with a 0.4 monocytes, CMP is remarkable for sodium of 135, BUN 22, glucose 148, alkaline phosphatase 155, initial set of cardiac enzymes are negative, BNP 17, lipase 210, PT PTT within normal limits. diology studies were reviewed and remarkable for a chest x-ray that shows no acute cardiopulmonary disease. The patients results were discussed with the patient, including the plan of care. I explained that further testing and/ or monitoring is indicated based on the patients history, examination, and/ or laboratory findings. Therefore, I recommended admission for additional evaluation. The patient expressed understanding and was agreeable with this plan. The patient was admitted to the hospital in stable condition and sent to a bed under the care of the chest pain center. Diagnosis Primary Impression: Chest pain, rule out acute myocardial infarction Additional Impression: Gastroesophageal reflux Qualified Codes: K21.9 - Gastro-esophageal reflux disease without esophagitis Admitting Information Admitting Physician Requests: Nova Miller MD Dec 08, 2016 03:36
[2016-12-08 03:43] LABS: CKMB 1.8 NG/ML (0.5-3.6)
[2016-12-08] MEDS ORDERED: SODIUM CHLORID 0.9% 500 ML INJ 500 ML IV ONE (04:15)
[2016-12-08] MEDS ORDERED: ONDANSETRON HCL 4 MG/2 ML VIAL IV PUSH ONE (04:15)
[2016-12-08] MEDS ORDERED: MORPHINE SULFATE 4 MG/ML INJ IV PUSH ONE (04:15)
[2016-12-08] MEDS ORDERED: PANTOPRAZOLE SODIUM 40 MG VIAL IV PUSH ONE (05:00)
[2016-12-08] MEDS ORDERED: SODIUM CHLORIDE 0.9% FLUSH 10 ML FLUSH IV FLUSH PRN (06:45)
--- NOTE | 2016-12-08 08:42 | RADRPT ---
EXAM DATE/TIME: 12/08/2016 08:17 [place] COMPARISON: No previous studies available for comparison. INDICATIONS : Pain radiating down left arm. RADIATION DOSE: 33.77 CTDIvol (mGy) MEDICAL HISTORY : Cerebrovascular disease. Chronic obstructive pulmonary disease. Cardiovascular disease SURGICAL HISTORY : None. ENCOUNTER: Initial ACUITY: 1 day PAIN SCALE: 2/10 LOCATION: neck TECHNIQUE: Volumetric scanning of the cervical spine was performed. Multiplanar reconstructions in the sagittal, coronal and oblique axial planes were performed. Using automated exposure control and adjustment o f the mA and/or kV according to patient size, radiation dose was kept as low as reasonably achievable to obtain optimal diagnostic quality images. DICOM format image data is available electronically f or review and comparison. FINDINGS: VERTEBRAE: Normal vertebral body height. ALIGNMENT: No evidence of subluxation. C2-C3: There is a mild central disc bulge. No abutment of the cord or central canal stenosis. Neural foramin a are patent. C3-C4: There is a mild central disc bulge. No abutment of the cord or central canal stenosis. Neural foramin a are patent. C4-C5: There is a central disc bulge that flattens the ventral portion of the cord. Neural foramina are clement nt bilaterally. C5-C6: There is a broad-based disc osteophyte complex flattens the ventral portion of the cord more pronounc ed to the left. Narrowing of the lateral recesses bilaterally more pronounced on the left. Neural for yannick are patent bilaterally. C6-C7: The bony spinal canal is normal in size. No evidence of disc bulge or herniation. The neural forami na are bilaterally patent. C7-T1: The bony spinal canal is normal in size. No evidence of disc bulge or herniation. The neural forami na are bilaterally patent. CONCLUSION: 1. Degenerative changes including areas of abutment of the cord as detailed above. Neural foramina ar e patent bilaterally. Jefferson Ramos Jr., MD on December 08, 2016 at 8:33 Board Certified Radiologist. This report was verified electronically.
[2016-12-08 08:59] LABS: CREATINE KINASE 102 U/L (39-308)
[2016-12-08] MEDS ORDERED: KETOROLAC TROMETHAMINE 30 MG/ML (IVP) VIAL IVP ONE (09:00)
[2016-12-08] MEDS ORDERED: RESP: ALBUTEROL 2.5 MG/IPRATROPIUM 0.5 MG NEB (SCH) INH ONE (09:00)
[2016-12-08] MEDS: SODIUM CHLORIDE 0.9% FLUSH 10 ML FLUSH IV FLUSH SCH ×2 (09:03→21:30)
[2016-12-08 09:12] LABS: CKMB 1.7 NG/ML (0.5-3.6)
[2016-12-08] MEDS: CARVEDILOL 3.125 MG TAB PO SCH ×2 (11:15→21:28)
[2016-12-08] MEDS: LISINOPRIL 5 MG TAB PO SCH (11:15)
[2016-12-08] MEDS: ASPIRIN 325 MG TAB PO SCH (11:19)
[2016-12-08] MEDS ORDERED: RESP: ALBUTEROL 2.5 MG/IPRATROPIUM 0.5 MG NEB (PRN) INH (12:00)
[2016-12-08 12:19] LABS: CREATINE KINASE 88 U/L (39-308)
--- NOTE | 2016-12-08 12:31 | HHI.HP ---
HPI Primary Care Physician [facility] Chief Complaint Left arm pain History of Present Illness This is a 56-year-old male with history of CAD with stents that presents to ED with a complaint of left arm pain. Patient states that he has not had discomfort like this before. This is not as cardiac pain. Denies chest pain. It is been constantly there for about 24 hours. It begins in the left side of his neck and head and radiates down his left arm. At times he has numbness and tingling it also feels weaker in the left arm. Denies head injury. Denies seizure activity. Denies any neck injuries. Upon reviewing her records patient had a cardiac catheterization in August that revealed patent stent. Voices compliance medication. Review of Systems General: Patient denies fevers, chills recent, and recent travel HEENT: Patient denies headache, sore throat, difficulty swallowing. Cardiovascular: Denies chest discomfort as mentioned above.. Denies sensation of heart beating rapidly or irregularly. No syncope. Denies diaphoresis. Respiratory: Denies shortness of breath or inspirational chest discomfort. Denies coughing wheezing or hemoptysis. GI: Patient denies nausea, vomiting, diarrhea, abdominal pain, bloody stools. Musculoskeletal: Patient complains of left arm pain. Patient denies joint pain or edema. Denies calf pain or edema. Neurovascular: Complains of left arm numbness, tingling, and weakness. Denies headache. There is a discomfort that radiates from the left side of his neck/ had radiates into his arm. Endocrine: Denies polyuria and polydipsia. Hematologic: Denies easy bruising. Skin: Denies rash or itching. Past Family Social History Allergies: Coded Allergies: No Known Allergies (Unverified , 12/08/16) Past Medical History CAD with stent. Hypertension, hyperlipidemia, COPD, GERD. Denies diabetes. Reported Medications Reported Meds & Active Scripts Active Omeprazole 40 Mg Cap 40 Mg PO DAILY Ventolin Hfa 18 GM Inh (Albuterol Sulfate) 90 Mcg/Act Aer 2 Puff INH Q4-6H PRN Nitrostat SL (Nitroglycerin) 0.4 Mg Subl 0.4 Mg SL Q5M PRN Atorvastatin (Atorvastatin Calcium) 40 Mg Tab 40 Mg PO HS Coreg (Carvedilol) 3.125 Mg Tab 3.125 Mg PO Q12HR Lisinopril 5 Mg Tab 5 Mg PO DAILY 30 Days Symbicort Inh (Budesonide/Formoterol Fumarate) 160-4.5 Mcg/Act Aero 2 Puff INH Q12HR 30 Days Reported Plavix (Clopidogrel Bisulfate) 75 Mg Tab 75 Mg PO DAILY Aspirin Childrens (Aspirin) 81 Mg Chew 81 Mg CHEW HS Active Ordered Medications Current Medications Medications (Trade) Dose Ordered Sig/[place] Route Start Time Stop Time Status Last Admin (NS Flush) 2 ml UNSCH PRN IVF 12/08/16 03:00 12/08/16 03:15 (NS Flush) 2 ml UNSCH PRN IV FLUSH 12/08/16 06:45 (NS Flush) 2 ml BID IV FLUSH 12/08/16 09:00 12/08/16 09:03 (Duoneb Neb) 1 ampule Q4HR NEB PRN INH 12/08/16 12:00 (Lipitor) 40 mg HS PO 12/08/16 21:00 (Symbicort 160-4.5 Inh) 2 puff Q12HR INH 12/08/16 21:00 (Coreg) 3.125 mg Q12HR PO 12/08/16 11:15 (Prinivil) 5 mg DAILY PO 12/08/16 11:15 (Protonix) 40 mg DAILY PO 12/09/16 09:00 (Aspirin) 325 mg DAILY PO 12/08/16 11:15 12/08/16 11:19 Family History There is family history of CAD. Social History Patient states he has decreased his tobacco intake to about 2 pack of cigarettes daily but prior that he was smoking approximately 3 pack of cigarettes daily for about 30 years. Will have an alcoholic beverage about once a week. Denies illicit drugs. Physical Exam Vital Signs Vital Signs Date Time Temp Pulse Resp B/P (MAP) Pulse Ox O2 Delivery O2 Flow Rate FiO2 12/08/16 11:29 99.5 65 22 111/65 (80) 95 12/08/16 10:00 56 12/08/16 08:56 97.5 62 18 108/62 (77) 96 12/08/16 08:00 74 15 104/69 (81) 95 Nasal Cannula 2.00 12/08/16 06:50 96 12/08/16 04:13 98.4 89 18 113/64 (80) 96 Room Air 12/08/16 02:50 96 Room Air 12/08/16 02:49 139/76 (97) 135/75 (95) 12/08/16 02:44 97 Room Air 12/08/16 02:41 98.6 57 18 139/76 (97) 96 12/08/16 02:25 98.5 85 18 143/85 (104) 95 Room Air Physical Exam GENERAL: This is a well-nourished, well-developed patient, in no apparent distress. Patient speaks in clear complete sentences. Patient is pleasant. HEENT: Head is atraumatic and normocephalic. Neck is supple without lymphadenopathy and trachea is midline. No JVD or carotid bruits. CARDIOVASCULAR: Regular rate and rhythm without murmurs, gallops, or rubs. RESPIRATORY: There is some expiratory wheezing bilateral bases. Breath sounds equal bilaterally. No rales, or rhonchi. Chest wall is nontender. No use of accessory muscles. GASTROINTESTINAL: Abdomen is nontender, nondistended. Abdomen soft. No obvious pulsatile mass or bruit. No CVA tenderness. Strong femoral pulses bilaterally. Normal bowel sounds in all quadrants. MUSCULOSKELETAL: Patient is moving upper and lower extremities freely. No calf tenderness or edema, no Homans sign. Strong pulses in upper and lower extremities. NEUROLOGICAL: Patient is alert and oriented. Cranial nerves 2-12 are grossly intact. No focal deficits and speech is clear. Patient is moving his left arm as he is stating that his week. Do not appreciate any deficit on examination. 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 SKIN: No rash and turgor is normal. Laboratory Laboratory Tests Test 12/08/16 02:45 12/08/16 07:45 12/08/16 11:20 White Blood Count 8.0 Red Blood Count 4.93 Hemoglobin 15.2 Hematocrit 44.5 Mean Corpuscular Volume 90.3 Mean Corpuscular Hemoglobin 30.9 Mean Corpuscular Hemoglobin Concent 34.2 Red Cell Distribution Width 13.1 Platelet Count 217 Mean Platelet Volume 8.0 Neutrophils (%) (Auto) 56.9 Lymphocytes (%) (Auto) 28.9 Monocytes (%) (Auto) 8.4 Eosinophils (%) (Auto) 4.4 Basophils (%) (Auto) 1.4 Neutrophils # (Auto) 4.5 Lymphocytes # (Auto) 2.3 Monocytes # (Auto) 0.7 Eosinophils # (Auto) 0.4 Basophils # (Auto) 0.1 CBC Comment DIFF FINAL Differential Comment Prothrombin Time 10.0 Prothromb Time International Ratio 0.9 Activated Partial Thromboplast Time 28.5 Blood Urea Nitrogen 22 Creatinine 1.15 Random Glucose 148 Total Protein 6.7 Albumin 3.0 Calcium Level 8.1 Magnesium Level 2.1 Alkaline Phosphatase 155 Aspartate Amino Transf (AST/SGOT) 29 Alanine Aminotransferase (ALT/SGPT) 37 Total Bilirubin 0.3 Sodium Level 135 Potassium Level 4.2 Chloride Level 106 Carbon Dioxide Level 23.3 Anion Gap 6 Estimat Glomerular Filtration Rate 66 Total Creatine Kinase 146 102 88 Creatine Kinase MB 1.8 1.7 Troponin I LESS THAN 0.02 LESS THAN 0.02 LESS THAN 0.02 B-Type Natriuretic Peptide 17 Lipase 210 Result Diagram: 12/08/165 12/08/16244 Imaging Last 48 hours Impressions Chest X-Ray 12/08/16246 Signed Impressions: Service Date/Time: Thursday, December 08, 2016 03:02 - CONCLUSION: No acute disease. Axel Villalobos MD Cervical Spine CT 12/08/16 0000 Signed Impressions: Service Date/Time: Thursday, December 08, 2016 08:17 - CONCLUSION: 1. Degenerative changes including areas of abutment of the cord as detailed above. Neural foramina are patent bilaterally. Jefferson Ramos Jr., MD Course EKGs have sinus rhythm with right bundle branch block. Caprini VTE Risk Assessment Caprini VTE Risk Assessment: No/Low Risk (score <= 1) Caprini Risk Assessment Model Point Value = 1 Point Value = 2 Point Value = 3 Point Value = 5 Age 41-60 Minor surgery BMI > 25 kg/m2 Swollen legs Varicose veins or History of unexplained or recurrent spontaneous Oral contraceptives or hormone replacement Sepsis (< 1 month) Serious lung disease, including pneumonia (< 1 month) Abnormal pulmonary function Acute myocardial infarction Congestive heart failure (< 1 month) History of inflammatory bowel disease Medical patient at bed rest Age 61-74 Arthroscopic surgery Major open surgery (> 45 min) Laparoscopic surgery (> 45 min) Malignancy Confined to bed (> 72 hours) Immobilizing plaster cast Central venous access Age >= 75 History of VTE Family history of VTE Factor V Leiden Prothrombin [id number] Lupus anticoagulant Anticardiolipin antibodies Elevated serum homocysteine Heparin-induced thrombocytopenia Other congenital or acquired thrombophilia Stroke (< 1 month) Elective arthroplasty Hip, pelvis, or leg fracture Acute spinal cord injury (< 1 month) Prophylaxis Regimen Total Risk Factor Score Risk Level Prophylaxis Regimen 0-1 Low Early ambulation 2 Moderate Order ONE of the following: *Sequential Compression Device (SCD) *Heparin 5000 units SQ BID 3-4 Higher Order ONE of the following medications: *Heparin 5000 units SQ TID *Enoxaparin/Lovenox 40 mg SQ daily (WT < 150 kg, CrCl > 30 mL/min) *Enoxaparin/Lovenox 30 mg SQ daily (WT < 150 kg, CrCl > 10-29 mL/min) *Enoxaparin/Lovenox 30 mg SQ BID (WT < 150 kg, CrCl > 30 mL/min) AND/OR *Sequential Compression Device (SCD) 5 or more Highest Order ONE of the following medications: *Heparin 5000 units SQ TID (Preferred with Epidurals) *Enoxaparin/Lovenox 40 mg SQ daily (WT < 150 kg, CrCl > 30 mL/min) *Enoxaparin/Lovenox 30 mg SQ daily (WT < 150 kg, CrCl > 10-29 mL/min) *Enoxaparin/Lovenox 30 mg SQ BID (WT < 150 kg, CrCl > 30 mL/min) AND *Sequential Compression Device (SCD) Assessment and Plan Assessment and Plan * Cervical radiculopathy: Patient's discomfort appears to be a radicular pain from the neck. Patient has had serial cardiac enzymes and EKGs for ruling out purposes and was seen by Dr. Mike Duff of cardiology in the chest pain center and at this time his complaints do not appear to be cardiac in nature. A CT C-spine without IV contrast has been read by radiologist as degenerative changes including areas of abutment of the cord as detailed above. C4/C5 has central disc bulge flattens the ventral portion of the cord. C5/C6 has broad- based disc osteophyte complex that flattens the ventral portion of the cord more pronounced to the left. Narrowing of the lateral recesses bilaterally more pronounced on the left. We'll get a neurosurgical consult to assist in a plan of care regarding this. [facility] * CAD: Patient's presentation does not appear to be cardiac in origin but he does it history of CAD and will need to follow-up with [place] field service engineer. * Tobacco abuse: Patient has been counseled on the importance of smoking cessation. * Hypertension: Continue current medication. * Hyperlipidemia: Continue current medication. Patient is stable at this time. He is agreeable to this plan. Mick Jones Dec 08, 2016 12:31
--- NOTE | 2016-12-08 15:45 | EKG ---
Date Performed: 12/08/2016 Time Performed: 07:51:46 PTAGE: 56 years EKG: Sinus rhythm RIGHT BUNDLE BRANCH BLOCK ABNORMAL ECG PREVIOUS TRACING : 12/08/2016 02.38 Since previous tracing, no significant change noted DOCTOR: Mike Duff Interpretating Date/Time 12/08/2016 15:43:23
--- NOTE | 2016-12-08 15:45 | EKG ---
Date Performed: 12/08/2016 Time Performed: 02:38:58 PTAGE: 56 years EKG: Sinus rhythm RIGHT BUNDLE BRANCH BLOCK ABNORMAL ECG PREVIOUS TRACING : 12/08/2016 02.38 Since previous tracing, no significant change noted DOCTOR: Mike Duff Interpretating Date/Time 12/08/2016 15:43:43
--- NOTE | 2016-12-08 15:51 | EKG ---
Date Performed: 12/08/2016 Time Performed: 09:40:15 PTAGE: 56 years EKG: SINUS BRADYCARDIA RIGHT BUNDLE BRANCH BLOCK ABNORMAL ECG PREVIOUS TRACING : 12/08/2016 07.51 Since previous tracing, no significant change noted DOCTOR: Mike Duff Interpretating Date/Time 12/08/2016 15:49:55
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
[2016-12-08] MEDS ORDERED: ATORVASTATIN 40 MG TAB PO SCH (21:00)
[2016-12-08] MEDS: BUDESONIDE-FORMOTEROL 160/4.5 MCG INHALER INH SCH (21:28)
[2016-12-09] VITALS (7 sets, daily range): BP systolic 113–135; BP diastolic 67–82; PULSE 60–81; RESP 16–18; TEMP 97.4–98.1; O2SAT 94–96
--- NOTE | 2016-12-09 08:27 | PD.CARD.PN ---
Subjective Subjective Remarks Continue have intermittent neck discomfort, relieved with morphine. Reports speaking with neurosurgeon last evening. Plans to complete cervical MRI. Objective Medications Current Medications Medications (Trade) Dose Ordered Sig/[place] Route Start Time Stop Time Status Last Admin (NS Flush) 2 ml UNSCH PRN IVF 12/08/16 03:00 12/08/16 03:15 (NS Flush) 2 ml UNSCH PRN IV FLUSH 12/08/16 06:45 (NS Flush) 2 ml BID IV FLUSH 12/08/16 09:00 12/08/16 21:30 (Duoneb Neb) 1 ampule Q4HR NEB PRN INH 12/08/16 12:00 (Lipitor) 40 mg HS PO 12/08/16 21:00 12/08/16 21:28 (Symbicort 160-4.5 Inh) 2 puff Q12HR INH 12/08/16 21:00 12/08/16 21:28 (Coreg) 3.125 mg Q12HR PO 12/08/16 11:15 12/08/16 21:28 (Prinivil) 5 mg DAILY PO 12/08/16 11:15 (Protonix) 40 mg DAILY PO 12/09/16 09:00 (Aspirin) 325 mg DAILY PO 12/08/16 11:15 12/08/16 11:19 Vital Signs / I&O Vital Signs Date Time Temp Pulse Resp B/P (MAP) Pulse Ox O2 Delivery O2 Flow Rate FiO2 12/09/16 07:50 97.4 67 18 135/82 (99) 95 12/09/16 03:39 98.1 63 17 128/82 (97) 94 12/09/16 00:00 72 12/08/16 23:43 97.8 65 19 128/76 (93) 94 12/08/16 20:00 72 12/08/16 15:09 98.5 58 22 124/77 (93) 96 12/08/16 11:29 99.5 65 22 111/65 (80) 95 12/08/16 10:00 56 12/08/16 08:56 97.5 62 18 108/62 (77) 96 I/O 12/08/16 12/08/16 12/08/16 12/09/16 12/09/16 12/09/16 07:00 15:00 23:00 07:00 15:00 23:00 Intake Total 500 ml Output Total 275 ml Balance 500 ml -275 ml Intake IV Total 500 ml Output Urine Total 275 ml # Voids 1 Physical Exam GENERAL: Alert WN, WD, NAD, pleasant HEAD: NC, AT CV: RRR, without murmur, rub, gallop, no JVD, S1-S2 no S3-S4. RESP: Clear lungs throughout bilateral, no crackles, wheeze, rhonchi, symmetrical chest rise, nonlabored, able to speak in full sentences MS: Normal tone 4 extremities, nontender, no obvious deformities, full range of motion NEURO: CN II through CN XII grossly intact, motor strength 5/5 PSYCH: A+O 3, pleasant affect, appropriate speech, appropriate mood and affect , insight and judgment Laboratory Laboratory Tests Test 12/08/16 11:20 Total Creatine Kinase 88 U/L Troponin I LESS THAN 0.02 NG/ML Imaging Last Impressions Cervical Spine MRI 12/09/16 0000 Signed Impressions: Service Date/Time: November 09:21 - CONCLUSION: 1. Central to left-sided protrusion at C5-C6 and smaller central protrusion at C6-C7. There is no significant spinal canal stenosis. Mike Balderrama MD Chest X-Ray 12/08/16 0247 Signed Impressions: Service Date/Time: Thursday, December 08, 2016 03:02 - CONCLUSION: No acute disease. Axel Villalobos MD Cervical Spine CT 12/08/16 0000 Signed Impressions: Service Date/Time: Thursday, December 08, 2016 08:17 - CONCLUSION: 1. Degenerative changes including areas of abutment of the cord as detailed above. Neural foramina are patent bilaterally. Jefferson Ramos Jr., MD Assessment and Plan Assessment and Plan #1 Cervical radiculopathy-cervical MRI ordered Dr. Ceja. Further disposition to follow after Dr. Ceja reviews MRI results. #2 History of CAD-home medications previously reordered #3 Tobacco use-stressed the importance of tobacco cessation. Cassandra Hernandez Dec 09, 2016 08:27
[2016-12-09] MEDS: ASPIRIN 325 MG TAB PO SCH (08:52)
[2016-12-09] MEDS: BUDESONIDE-FORMOTEROL 160/4.5 MCG INHALER INH SCH (08:53)
[2016-12-09] MEDS: SODIUM CHLORIDE 0.9% FLUSH 10 ML FLUSH IV FLUSH SCH (08:53)
[2016-12-09] MEDS: LISINOPRIL 5 MG TAB PO SCH (08:53)
[2016-12-09] MEDS: CARVEDILOL 3.125 MG TAB PO SCH (08:53)
[2016-12-09] MEDS ORDERED: PANTOPRAZOLE SOD 40 MG DELAYED RELEASE TAB PO SCH (09:00)
--- NOTE | 2016-12-09 10:35 | RADRPT ---
EXAM DATE/TIME: 12/09/2016 09:21 [facility] COMPARISON: No previous studies available for comparison. INDICATIONS : Left neck pain radiating down left arm. MEDICAL HISTORY : Hypertension. Chronic obstructive pulmonary disease. Hypercholesterolemia. SURGICAL HISTORY : CAD with stent ENCOUNTER: Subsequent ACUITY: 2 day PAIN SCORE: 3/10 LOCATION: Left neck TECHNIQUE: Multiplanar, multisequence MRI examination of the cervical spine was performed. FINDINGS: Sagittal images demonstrate normal vertebral body alignment and curvature. No focal areas of marrow r eplacement are identified. The craniocervical junction appears normal. The cord itself is normal in c aliber and signal intensity. Axial images were performed from C2-3 through C7-T1. There is degenerati ve disc disease with disc space narrowing and marginal osteophyte formation at C5-C6. C2-C3: No significant abnormalities identified. C3-C4: There is mild diffuse annular bulge of the disc. The neural foramina are clear bilaterally. There is no significant spinal canal stenosis. C4-C5: No significant abnormalities identified. C5-C6: A central to left sided disc protrusion is present impinging on the thecal sac. This flattens the the ava sac on its left lateral aspect. There is mild left sided neural foraminal narrowing. There is no significant spinal canal stenosis. C6-C7: A small central protrusion is present impinging not significantly impinging on the thecal sac. There is no significant spinal canal stenosis. The neural foramina are clear bilaterally. C7-T1: No significant abnormalities identified. CONCLUSION: 1. Central to left-sided protrusion at C5-C6 and smaller central protrusion at C6-C7. There is no sig nificant spinal canal stenosis. Mike Balderrama MD on December 09, 2016 at 10:31 Board Certified Radiologist. This report was verified electronically.
[2016-12-09] MEDS ORDERED: KETOROLAC TROMETHAMINE 30 MG/ML (IVP) VIAL IV PUSH ONE (14:30)
[2016-12-09] MEDS ORDERED: GABA300C5 PO (17:24)
[2016-12-09] MEDS ORDERED: DEXA2TAB PO (17:24)
--- NOTE | 2016-12-09 17:49 | HHI.DCPOC ---
Discharge Care Plan Diagnosis: (1) Cervical radiculopathy (2) H/O heart artery stent (3) Tobacco abuse (4) CAD (coronary artery disease) Goals to Promote Your Health * To prevent worsening of your condition and complications * To maintain your health at the optimal level Directions to Meet Your Goals Take your medications as prescribed Follow your dietary instruction Follow activity as directed Keep your appointments as scheduled Take your immunizations and boosters as scheduled If your symptoms worsen call your PCP, if no PCP go to Urgent Care Center or Emergency Room Smoking is Dangerous to Your Health. Avoid second hand smoke Call the 24-hour hour crisis hotline for domestic abuse at Cassandra Hernandez Dec 09, 2016 17:49
--- NOTE | 2016-12-09 17:54 | HHI.DS ---
Discharge Summary Admission Date Dec 08, 2016 at 04:55 Discharge Date: Dec 09, 2016 Admitting Diagnosis CP R/O NV, h/o CAD Brief History 56-year-old male with known coronary artery disease presents to the emergency room for further evaluation of left arm and left sided neck pain. Denies pain similar to past cardiac pain. Admitted chest pain center. Seen and evaluated by cardiology. Consult placed in neurosurgeon for further recommendation. CBC/BMP: 12/08/16 0245 12/08/16 0245 Significant Findings Laboratory Tests Test 12/08/16 02:45 12/08/16 07:45 12/08/16 11:20 Monocytes (%) (Auto) 8.4 % (0.0-8.0) Eosinophils (%) (Auto) 4.4 % (0.0-4.0) Blood Urea Nitrogen 22 MG/DL (7-18) Random Glucose 148 MG/DL (74-106) Albumin 3.0 GM/DL (3.4-5.0) Calcium Level 8.1 MG/DL (8.5-10.1) Alkaline Phosphatase 155 U/L (45-117) Sodium Level 135 MEQ/L (136-145) Estimat Glomerular Filtration Rate 66 ML/MIN (>89) Troponin I LESS THAN 0.02 NG/ML LESS THAN 0.02 NG/ML LESS THAN 0.02 NG/ML Imaging Last Impressions Cervical Spine MRI 12/09/16 0000 Signed Impressions: Service Date/Time: November 09:21 - CONCLUSION: 1. Central to left-sided protrusion at C5-C6 and smaller central protrusion at C6-C7. There is no significant spinal canal stenosis. Mike Balderrama MD Chest X-Ray 12/08/16 0247 Signed Impressions: Service Date/Time: Thursday, December 08, 2016 03:02 - CONCLUSION: No acute disease. Axel Villalobos MD Cervical Spine CT 12/08/16 0000 Signed Impressions: Service Date/Time: Thursday, December 08, 2016 08:17 - CONCLUSION: 1. Degenerative changes including areas of abutment of the cord as detailed above. Neural foramina are patent bilaterally. Jefferson Ramos Jr., MD PE at Discharge GENERAL: Alert WN, WD, NAD, pleasant HEAD: NC, AT CV: RRR, without murmur, rub, gallop, no JVD, S1-S2 no S3-S4. No carotid bruits RESP: Clear lungs throughout bilateral, no crackles, wheeze, rhonchi, symmetrical chest rise, nonlabored, able to speak in full sentences ABD: Soft, NT, ND, no masses, positive bowel tones NEURO: CN II through CN XII grossly intact, motor strength 5/5, gait WNL PSYCH: A+O 3, pleasant affect, appropriate speech, appropriate mood and affect , insight and judgment Pt Condition on Discharge: Good Discharge Disposition: Discharge Home Discharge Instructions DIET: Follow Instructions for: As Tolerated, No Restrictions Cassandra Hernandez Dec 09, 2016 17:54
--- NOTE | 2016-12-09 21:45 | HHI.NSPN ---
History Chief Complaint: persistent left arm pain and mild numbness Interval History 56-year-old male presented to the emergency room with recent onset rather severe left upper extremity numbness, pain, left chest and neck pain. Cardiac evaluation negative. Exam Results Vital Signs Date Time Temp Pulse Resp B/P (MAP) Pulse Ox O2 Delivery O2 Flow Rate FiO2 12/09/16 16:02 16 12/09/16 15:07 97.7 61 113/67 (82) 96 12/08/16 08:00 Nasal Cannula 2.00 Physical Examination Awake and alert A little anxious States that he test to get out of the hospital to check his truck with all of his belongings in it. Facial sensory motor function is intact Speech is clear Sensation intact by touch upper extremities Strength is normal major flexion and extension groups in the upper extremities Tru's response absent bilateral Discussed the cervical scan results with the patient. Significant C5 6 osteophytic disc complexes with moderately severe left foraminal stenosis. Options of conservative treatment, interventional pain management, and surgical intervention all discussed with the patient. He would like to continue conservative treatment. He will be discharged home today. Signs and symptoms to watch for have been fully discussed He will follow up in our office as an outpatient and will report any change in his neurologic symptoms. He will be placed on a short course of low-dose steroids. Potential side effects discussed. Magdy Ceja MD Dec 09, 2016 21:45
== END 2016-12-09 19:59 | disposition home or self-care (01) ==
LOC: NEPE 02:23 → NEDA 04:55 → NEPFCDU 08:44
PROVIDERS: ADMIT Internal Medicine Interventional Cardiology; ATTEND Internal Medicine Interventional Cardiology
DX: M47.22 Other spondylosis with radiculopathy, cervical region (principal); M25.78 Osteophyte, vertebrae; I25.10 Atherosclerotic heart disease of native coronary artery without angina pectoris; I10 Essential (primary) hypertension; I45.10 Unspecified right bundle-branch block; R94.31 Abnormal electrocardiogram [ECG] [EKG]; I25.2 Old myocardial infarction; K21.9 Gastro-esophageal reflux disease without esophagitis; J44.9 Chronic obstructive pulmonary disease, unspecified; S43.006A Unspecified dislocation of unspecified shoulder joint, initial encounter; E78.5 Hyperlipidemia, unspecified; F17.210 Nicotine dependence, cigarettes, uncomplicated; Z95.5 Presence of coronary angioplasty implant and graft; Z86.73 Personal history of transient ischemic attack (TIA), and cerebral infarction without residual deficits
CPT/HCPCS: 71010; 72125; 72141; 80053; 82550; 82552; 83690; 83735; 83880; 84484; 85025; 85610; 85730; 93005; 94664; 96361; 96374; 96375; 96376; 99285; C9113; G0378; J1885; J2270; J2405; J7040

== ENCOUNTER 2017-07-24 02:55 | Emergency (ER) | payer OTHER ==
[~2017-07-24] VITALS: Ht 185.4 cm; Wt 93.0 kg
[~2017-07-24 02:55] MED LIST changes: +DEXA2TAB PO; +GABA300C5 PO
[2017-07-24 03:02] VITALS: BP 128/64; PULSE 115; RESP 26; TEMP 98.5; O2SAT 90
[2017-07-24] MEDS ORDERED: DEXAMETHASONE SOD PHOS 20 MG/5 ML VIAL IV PUSH ONE (04:15)
[2017-07-24] MEDS ORDERED: RESP: ALBUTEROL 2.5 MG/IPRATROPIUM 0.5 MG NEB (SCH) NEB ONE (04:15)
[2017-07-24] MEDS: MAGNESIUM SULFATE 1 GM PREMIX 100 ML IV SCH ×2 (04:23→05:26)
[2017-07-24 04:40] LABS: AUTOMATED NEUTROPHIL # 9.3 TH/MM3 (1.8-7.7); BASOPHIL # 0.1 TH/MM3 (0-0.2); BASOPHIL % 0.6 % (0.0-2.0); EOSINOPHIL # 0.1 TH/MM3 (0-0.4); EOSINOPHIL % 0.5 % (0.0-4.0); HEMOGLOBIN 15.9 GM/DL (13.0-17.0); LYMPH % 8.2 % (9.0-44.0); LYMPHOCYTE # 0.9 TH/MM3 (1.0-4.8); MEAN CELL VOLUME 90.6 FL (80.0-100.0); MEAN CORPUSCULAR HEMOGLOBIN 31.3 PG (27.0-34.0); MEAN CORPUSCULAR HGB CONC 34.5 % (32.0-36.0); MEAN PLATELET VOLUME 8.2 FL (7.0-11.0); MONO % 7.5 % (0.0-8.0); MONOCYTE # 0.8 TH/MM3 (0-0.9); NEUT % 83.2 % (16.0-70.0); PLATELET COUNT 199 TH/MM3 (150-450); RED BLOOD COUNT 5.08 MIL/MM3 (4.50-5.90); RED CELL DISTRIBUTION WIDTH 13.3 % (11.6-17.2); WHITE BLOOD COUNT 11.2 TH/MM3 (4.0-11.0)
[2017-07-24 04:56] LABS: ALBUMIN 3.6 GM/DL (3.4-5.0); ALT (GPT) 29 U/L (12-78); AST (GOT) 22 U/L (15-37); BICARBONATE 24.5 MEQ/L (21.0-32.0); BLOOD UREA NITROGEN 21 MG/DL (7-18); CALCIUM 8.6 MG/DL (8.5-10.1); CHLORIDE 105 MEQ/L (98-107); CREATININE 1.43 MG/DL (0.60-1.30); GLOMERULAR FILTRATION RATE 51 ML/MIN (>89); GLUCOSE,RANDOM 96 MG/DL (74-106); SODIUM (NA) 139 MEQ/L (136-145)
[2017-07-24 05:00] LABS: ALKALINE PHOSPHATASE 111 U/L (45-117); TOTAL BILIRUBIN ADULT 0.4 MG/DL (0.2-1.0); TOTAL PROTEIN 7.5 GM/DL (6.4-8.2); TROPONIN I LESS THAN 0.02 NG/ML (0.02-0.05)
--- NOTE | 2017-07-24 05:16 | RADRPT ---
EXAM DATE: 07/24/2017 4:47 AM EDT AGE/SEX: 57 years / Male INDICATIONS: Shortness of breath, cough, congestion, fever. CLINICAL DATA: This is the patient's initial encounter. Patient reports that signs and symptoms have been present for 3 days and indicates a pain score of 0/10. MEDICAL/SURGICAL HISTORY: Hypertension. Smoker. Coronary artery stent. COMPARISON: [facility] [place]ST SINGLE AP, 12/08/2016. . FINDINGS: PA and lateral views of the chest demonstrate the lungs to be symmetrically aerated without evidence of mass, infiltrate or effusion. The cardiomediastinal contours are unremarkable. Osseous structures are intact. CONCLUSION: No acute cardiopulmonary disease demonstrated. Electronically signed by: Axel Mcgrath MD 07/24/2017 5:15 AM EDT
--- NOTE | 2017-07-24 07:39 | PD ---
HPI Chief Complaint: Respiratory Symptoms Time Seen by Provider: 04:00 Travel History International Travel<30 days: No Contact w/Intl Traveler<30days: No Traveled to known affect area: No History of Present Illness HPI Patient is a 57-year-old male presents to the emergency department with complaints of shortness of breath. He is a smoker and has a history of COPD. He states that he feels short of breath and it has been a gradual process over the last 2 or 3 days. Patient has no complaints of chest pain. He has had multiple prior episodes. He has a 60+ pack year history however has only been smoking 3 or 4 cigarettes a day because he does not feel well PFSH Past Medical History Hx Anticoagulant Therapy: Yes (PLAVIX) Asthma: No Autoimmune Disease: Yes (Hep C ) Depression: Yes Heart Rhythm Problems: Yes Cardiac Catheterization: Yes (WITH STENT PLACEMENT X 1) Cardiovascular Problems: Yes High Cholesterol: Yes Congestive Heart Failure: No COPD: Yes Cerebrovascular Accident: Yes Coronary Artery Disease: Yes Diabetes: No Diminished Hearing: No Endocrine: No GERD: Yes Genitourinary: No Hepatitis: Yes (HEP C ) Hypertension: Yes Neurologic: No Reproductive: No Respiratory: Yes (COPD) Myocardial Infarction: Yes (12/2015) Pneumonia: Yes Tetanus Vaccination: < 5 Years Influenza Vaccination: No Past Surgical History Cardiac Surgery: Yes (stent(01/09/16)) Coronary Artery Bypass Graft: No Coronary Stent: Yes (01/10/2016) Oral Surgery: Yes (teeth removed) Family History Family Myocardial Infarction: Yes (FATHER) Social History Alcohol Use: Yes (ONCE WEEKLY. LAST DRINK A WEEK AGO.) Tobacco Use: Yes Substance Use: No Allergies-Medications (Allergen,Severity, Reaction): Coded Allergies: No Known Allergies (Unverified Adverse Reaction, Unknown, 07/24/17) Reported Meds & Prescriptions Reported Meds & Active Scripts Active Gabapentin 300 Mg Cap 300 Mg PO BID Dexamethasone 2 Mg Tab 2 Mg PO Q8HR 5 Days Omeprazole 40 Mg Cap 40 Mg PO DAILY Ventolin Hfa 18 GM Inh (Albuterol Sulfate) 90 Mcg/Act Aer 2 Puff INH Q4-6H PRN Nitrostat SL (Nitroglycerin) 0.4 Mg Subl 0.4 Mg SL Q5M PRN Atorvastatin (Atorvastatin Calcium) 40 Mg Tab 40 Mg PO HS Coreg (Carvedilol) 3.125 Mg Tab 3.125 Mg PO Q12HR Lisinopril 5 Mg Tab 5 Mg PO DAILY 30 Days Symbicort Inh (Budesonide/Formoterol Fumarate) 160-4.5 Mcg/Act Aero 2 Puff INH Q12HR 30 Days Reported Plavix (Clopidogrel Bisulfate) 75 Mg Tab 75 Mg PO DAILY Aspirin Childrens (Aspirin) 81 Mg Chew 81 Mg CHEW HS Review of Systems Except as stated in HPI: all other systems reviewed are Neg General / Constitutional: No: Fever HENT: No: Congestion Cardiovascular: No: Chest Pain or Discomfort Respiratory: Positive: Cough, Shortness of Breath, No: Wheezing Gastrointestinal: No: Nausea, Vomiting, Abdominal Pain Musculoskeletal: No: Myalgias, Arthralgias Psychiatric: No: Anxiety, Depression Physical Exam Narrative GENERAL: 57-year-old male in mild distress secondary to shortness of breath SKIN: Focused skin assessment warm/dry. HEAD: Atraumatic. Normocephalic. EYES: Pupils equal and round. No scleral icterus. No injection or drainage. ENT: No nasal bleeding or discharge. Mucous membranes pink and moist. NECK: Trachea midline. No JVD. CARDIOVASCULAR: Regular rate and rhythm. No murmur appreciated. RESPIRATORY: Scattered rhonchi bilaterally diminished breath sounds bilaterally GASTROINTESTINAL: Abdomen soft, non-tender, nondistended. Hepatic and splenic margins not palpable. MUSCULOSKELETAL: No obvious deformities. No clubbing. No cyanosis. No edema. Data Data Last Documented VS Vital Signs Date Time Temp Pulse Resp B/P (MAP) Pulse Ox O2 Delivery O2 Flow Rate FiO2 07/24/17 08:06 91 07/24/17 08:04 79 18 Room Air 07/24/17 03:02 98.5 Orders Orders Chest, Pa & Lat (07/24/17 ) Complete Blood Count With Diff (07/24/17 04:03) Comprehensive Metabolic Panel (07/24/17 04:03) Troponin I (07/24/17 04:03) Electrocardiogram (07/24/17 ) Creatine Kinase (Cpk) (07/24/17 04:03) Albuterol-Ipratropium Neb (Duoneb Neb) (07/24/17 04:15) Dexamethasone Inj (Decadron Inj) (07/24/17 04:15) Magnesium Sulfate 1 Gm Premix (Magnesium (07/24/17 04:15) CKMB (07/24/17 04:21) CKMB% (07/24/17 04:21) Ed Discharge Order (07/24/17 07:40) Labs Laboratory Tests Test 07/24/17 04:21 White Blood Count 11.2 TH/MM3 Red Blood Count 5.08 MIL/MM3 Hemoglobin 15.9 GM/DL Hematocrit 46.0 % Mean Corpuscular Volume 90.6 FL Mean Corpuscular Hemoglobin 31.3 PG Mean Corpuscular Hemoglobin Concent 34.5 % Red Cell Distribution Width 13.3 % Platelet Count 199 TH/MM3 Mean Platelet Volume 8.2 FL Neutrophils (%) (Auto) 83.2 % Lymphocytes (%) (Auto) 8.2 % Monocytes (%) (Auto) 7.5 % Eosinophils (%) (Auto) 0.5 % Basophils (%) (Auto) 0.6 % Neutrophils # (Auto) 9.3 TH/MM3 Lymphocytes # (Auto) 0.9 TH/MM3 Monocytes # (Auto) 0.8 TH/MM3 Eosinophils # (Auto) 0.1 TH/MM3 Basophils # (Auto) 0.1 TH/MM3 CBC Comment DIFF FINAL Differential Comment Blood Urea Nitrogen 21 MG/DL Creatinine 1.43 MG/DL Random Glucose 96 MG/DL Total Protein 7.5 GM/DL Albumin 3.6 GM/DL Calcium Level 8.6 MG/DL Alkaline Phosphatase 111 U/L Aspartate Amino Transf (AST/SGOT) 22 U/L Alanine Aminotransferase (ALT/SGPT) 29 U/L Total Bilirubin 0.4 MG/DL Sodium Level 139 MEQ/L Potassium Level 4.2 MEQ/L Chloride Level 105 MEQ/L Carbon Dioxide Level 24.5 MEQ/L Anion Gap 10 MEQ/L Estimat Glomerular Filtration Rate 51 ML/MIN Total Creatine Kinase 352 U/L Creatine Kinase MB 1.4 NG/ML Creatine Kinase MB % 0.4 % Troponin I LESS THAN 0.02 NG/ML MDM Medical Decision Making Medical Screen Exam Complete: Yes Emergency Medical Condition: Yes Differential Diagnosis COPD exacerbation, pneumonia, bronchitis Narrative Course Patient seen and evaluated in the emergency department. He had no acute findings in his lab studies and x-ray. He felt much much better after the treatment received and was no longer short of breath. His reevaluation demonstrated improved air movement and clear lungs. He remained hypoxic with a pulse ox of 91 but requested discharge instead of observation. He is instructed to return to the emergency department should his condition worsen in any way Diagnosis Primary Impression: COPD (chronic obstructive pulmonary disease) Qualified Codes: J44.1 - Chronic obstructive pulmonary disease with (acute) exacerbation Patient Instructions: COPD (Chronic Obstructive Pulmonary Disease) (ED), General Instructions Disposition: 01 DISCHARGE HOME Condition: Good Ricky Moralez DO July 24, 2017 07:39
[2017-07-24 08:04] VITALS: BP 115/63; PULSE 79; RESP 18; O2SAT 91
--- NOTE | 2017-07-24 14:26 | EKG ---
Date Performed: 07/24/2017 Time Performed: 04:21:00 PTAGE: 57 years EKG: Sinus rhythm WITH SHORT AR INTERVAL RIGHT BUNDLE BRANCH BLOCK ABNORMAL ECG Since PREVIOUS TRACING , no significant change noted PREVIOUS TRACIN12/08/2016 09.40 DOCTOR: Cedric Yang Interpretating Date/Time 07/24/2017 14:25:10
== END 2017-07-24 08:08 | disposition home or self-care (01) ==
LOC: NEPC 02:55
DX: J44.1 Chronic obstructive pulmonary disease with (acute) exacerbation (principal); B19.20 Unspecified viral hepatitis C without hepatic coma; I10 Essential (primary) hypertension; R94.31 Abnormal electrocardiogram [ECG] [EKG]; Z79.01 Long term (current) use of anticoagulants; Z72.0 Tobacco use
CPT/HCPCS: 71046; 80053; 82550; 82552; 84484; 85025; 93005; 94664; 96365; 96375; 99285; J1100; J3475